=== PATIENT | male | born 1930 | race Caucasian/White ===

== ENCOUNTER 2018-10-21 10:57 | Inpatient (IN) ==
[2018-10-21] MEDS ORDERED: 0.9 % Sodium Chloride 1,000 ML IVC ONE (11:16)
[2018-10-21] MEDS ORDERED: Ondansetron ODT 4 MG TAB.RAPDIS SL ONE (11:23)
[2018-10-21] MEDS ORDERED: Isovue-370 500 ML BOTTLE IVP ONE (11:27)
--- NOTE | 2018-10-21 11:35 | Emergency Department Note ---
Disposition Clinical Impression: Elevated LFTs Abdominal pain Qualifiers: Abdominal location: periumbilical Qualified Code(s): R10.33 - Periumbilical pain Leukocytosis Qualifiers: Leukocytosis type: leukemoid reaction Qualified Code(s): D72.823 - Leukemoid reaction Disposition: Admitted As Inpatient Condition: Fair Time of Disposition: 22:25 Abdominal Pain HPI - General Chief Complaint: ED Abdominal Pain Stated Complaint: abdominal pain Time Seen by Provider: 10/21/18 11:09 Source: patient Nursing Notes Reviewed: Yes Vital Signs Reviewed: Yes - History of Present Illness HPI Narrative: 87-year-old male with history significant for GERD presents today with 3 days of abdominal pain. He states that he has felt ill for 3 days, and has had ill- defined lower abdominal pain that has not radiated has not been relieved by any of his Tylenol 4 which he takes for chronic pain. He reports vomiting periodically since last night denies any hematemesis or coffee-ground emesis. He also reports nausea and constipation. His last bowel movement was 3 days ago after taking some Metamucil. He also reports shortness of breath for the last day or so. He reports the pain at its worst was a 10 out of 10 last night and is described as a dull ache in his lower abdomen. He denies any new numbness, tingling, radiation of the pain, lower extremity swelling, black stool, bloody stool, urinary changes, including increased urgency, frequency or pain with urination. He reports the pain is worse with movement, but also gradually worsens at rest. She says the pain is better if he applies pressure to his lower abdomen or if he repositions himself. He denies any flank pain, groin pa in, chest pain. His past medical history is significant for high cholesterol high blood pressure takes simvastatin losartan Tylenol for an omeprazole. He denies any history of peptic ulcer disease, states he takes omeprazole for GERD he received an upper endoscopy for his GERD a very long time ago. Denies any alcohol or drug use, former smoker quit in the early . Pain Scale: 8 - Related Data Home Medications Medication Instructions Recorded Confirmed Losartan [Cozaar] 25 mg PO DAILY 10/21/18 10/21/18 Omeprazole [PriLOSEC] 20 mg PO DAILY 10/21/18 10/21/18 Simvastatin [Zocor] 10 mg PO DAILY 10/21/18 10/21/18 Allergies Allergy/AdvReac Type Severity Reaction Status Date / Time aspirin AdvReac Cough Verified 10/21/18 11:16 All systems ED: reviewed and negative except as stated. Review of Systems: As Per HPI Abdominal Pain PMH - Past Medical History Medical history: Reports: GERD, hyperlipidemia, hypertension Male Surgical History: Reports: orthopedic, other Psychiatric history: Reports: no psych history - Social History Smoking status: Never smoker Alcohol use: Reports: none Drug use: Reports: none Physical Exam - General Limitations: no limitations General appearance: alert, in no apparent distress - Head Head exam: atraumatic, normocephalic, normal inspection - Eye Eye exam: Present: normal appearance, PERRL, EOMI. Absent: scleral icterus, conjunctival injection, nystagmus - ENT ENT exam: normal oropharynx, mucous membranes moist - Neck Neck exam: Present: normal inspection, trachea midline - Chest Chest inspection: Present: normal inspection, symmetric chest wall rise - Respiratory Respiratory exam: Absent: normal lung sounds bilaterally (Course breath sounds referred from upper airway), respiratory distress, wheezes, stridor, accessory muscle use - Cardiovascular Cardiovascular exam: Present: regular rate, normal rhythm, normal heart sounds. Absent: systolic murmur, diastolic murmur - Abdominal Exam Abdominal exam: Present: soft, tenderness (Mild tenderness to deep palpation in the suprapubic area only.). Absent: distention, guarding, rebound, rigidity, organomegaly, trauma, mass - Rectal Exam Rectal exam: Present: deferred - Extremities Exam Extremities exam: Present: normal inspection, normal capillary refill. Absent: tenderness, pedal edema - Back Exam Back exam: Present: normal inspection. Absent: CVA tenderness (R), CVA tenderness (L) - Neurological Exam Neurological exam: Present: alert, oriented X3, CN II-XII intact - Psychiatric Psychiatric exam: Present: normal affect, normal mood - Skin Skin exam: Present: warm, dry, normal color. 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 We will give Tylenol for relief of the body aches. Time: 13:17 - Consultations Consultation #1: Spoke with gastroenterology., Given patient's non-toxic appearance and mild clinical presentation. We are in agreement that this does not require immediate intervention, he will be admitted to medicine and made nothing by mouth after midnight and will be seen by GI tomorrow, likely for an MRCP Time: 14:00 Consultation #2: Spoke with hospitalist about admission of patient, due to concerns on there and of potential decompensation and the possibility that more urgent intervention might be needed than an admission with visit by GI tomorrow, we will obtain a lactate given a bolus of fluids and draw blood cultures. Pending the results of the lactic acid, patient will be admitted to medicine Time: 14:30 Vital Signs Temperature 98.6 F 10/21/18 11:03 Pulse Rate 99 10/21/18 11:03 Respiratory Rate 16 10/21/18 11:03 Blood Pressure 135/76 10/21/18 11:03 O2 Sat by Pulse Oximetry 99 10/21/18 11:03 Temperature 98.2 F 10/21/18 17:34 Pulse Rate 71 10/21/18 17:34 Respiratory Rate 14 10/21/18 17:34 Blood Pressure 126/67 10/21/18 17:34 O2 Sat by Pulse Oximetry 96 10/21/18 17:34 Oxygen Delivery Oxygen Delivery Room Air Abdominal Pain - MDM Narrative Medical decision making narrative: 87-year-old male presented to the ED today with ill-defined abdominal pain constipation, shortness of breath. His initial physical exam revealed a nonacute abdomen, with some mild tenderness in the lower quadrants. Laboratory investigation revealed a bilirubin of 1.7 with an AST of 394 and an ALT of 235, with an alkaline phosphatase of 313. CAT scan revealed cholelithiasis with dilation of the common bile duct. 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 I agree with this assessment, as the patient is in stable condition and has had a nonacute clinical appearance for the duration of his stay here. In discussion with the hospitalist, they requested we obtain a lactate level to rule out occult septic process. Pending this lab value, he will be admitted to medicine for further workup of his cholelithiasis with common bile duct dilation - Differential Diagnosis Differential Diagnosis: Likely: abdominal pain non-specific - Medical Records Medical records reviewed: Yes I reviewed the patient's medical records. - Lab Data Lab results reviewed: Yes I reviewed the patient's lab results. Result diagrams: 10/21/18 11:53 Lab Results 10/21/18 10/21/18 10/21/18 Range/Units 11:39 11:53 11:53 WBC 15.3 H (4.3-11.1) K/mcL RBC 4.59 (4.19-5.50) M/mcL Hgb 14.0 (12.9-16.9) g/dL Hct 43.1 (37.5-50.1) % MCV 93.9 (83.0-100.0) fL MCH 30.5 (28.0-33.3) pg MCHC 32.5 (31.6-35.5) g/dL RDW 12.4 (11.5-14.5) % Plt Count 198 (140-400) K/mcL MPV 10.5 (9.4-12.4) fL Immature Gran % 0.5 (0-4) % Seg Neutrophils % 89.6 % Lymphocytes % 2.7 % Monocytes % 6.9 % Eosinophils % 0.1 % Basophils % 0.2 % Neutrophils # 13.7 H (1.6-8.9) K/mcL Lymphocytes # 0.4 L (0.6-4.6) K/mcL Monocytes # 1.1 (0.0-1.3) K/mcL Eosinophils # 0.0 (0.0-0.6) K/mcL Basophils # 0.0 (0.0-0.2) K/mcL PT (9.4-12.1) Seconds INR Lactic Acid (0.5-2.2) mmol/L Total Bilirubin 1.7 H (0.3-1.0) mg/dL Direct Bilirubin 0.7 H (0.0-0.2) mg/dL Indirect Bilirubin 1.0 (0.0-1.2) mg/dL AST 394 H (13-39) Units/L ALT 235 H (7-52) Units/L Alkaline Phosphatase 313 H (34-104) Units/L Ammonia (16-53) mcmol/L Troponin I < 0.03 (< 0.04) ng/mL Serum Total Protein 7.0 (6.4-8.9) g/dL Albumin 4.2 (3.5-5.7) g/dL Globulin 2.8 (2.4-3.5) g/dL Albumin/Globulin Ratio 1.5 (1.1-2.2) Lipase 13 (11-82) Units/L Urine Color Dark Yellow (Yellow) Urine Clarity Clear (Clear) Urine pH 6.0 (5.0-8.0) pH Units Ur Specific [place] 1.025 (1.010-1.025) Urine Protein Trace (Neg-Trace) mg/dL Urine Glucose (UA) Normal (Normal) mg/dL Urine Ketones Trace H (Negative) mg/dL Urine Blood Negative (Negative) Urine Nitrite Negative (Negative) Urine Bilirubin Small H (Negative) Urine Urobilinogen 2.0 H (Normal) mg/dL Ur Leukocyte Esterase Small H (Negative) Urine Microscopic RBC 0-3 (0-3) per hpf Urine Microscopic WBC 5-15 H (0-3) per hpf Ur Squamous Epith Cells Moderate H (None-Few) per lpf Urine Bacteria None Seen (None-Few) per hpf Hyaline Casts None Seen (None-Few) per lpf Ur Culture Indicated? YES A (NO) Hepatitis A IgM Ab (Nonreactive) Hep Bs Antigen (Nonreactive) Hep B Core IgM Ab (Nonreactive) Hepatitis C Ab Screen (Nonreactive) 10/21/18 10/21/18 10/21/18 Range/Units 11:53 11:53 13:01 WBC (4.3-11.1) K/mcL RBC (4.19-5.50) M/mcL Hgb (12.9-16.9) g/dL Hct (37.5-50.1) % MCV (83.0-100.0) fL MCH (28.0-33.3) pg MCHC (31.6-35.5) g/dL RDW (11.5-14.5) % Plt Count (140-400) K/mcL MPV (9.4-12.4) fL Immature Gran % (0-4) % Seg Neutrophils % % Lymphocytes % % Monocytes % % Eosinophils % % Basophils % % Neutrophils # (1.6-8.9) K/mcL Lymphocytes # (0.6-4.6) K/mcL Monocytes # (0.0-1.3) K/mcL Eosinophils # (0.0-0.6) K/mcL Basophils # (0.0-0.2) K/mcL PT 11.9 (9.4-12.1) Seconds INR 1.0 Lactic Acid (0.5-2.2) mmol/L Total Bilirubin (0.3-1.0) mg/dL Direct Bilirubin (0.0-0.2) mg/dL Indirect Bilirubin (0.0-1.2) mg/dL AST (13-39) Units/L ALT (7-52) Units/L Alkaline Phosphatase (34-104) Units/L Ammonia 24 (16-53) mcmol/L Troponin I (< 0.04) ng/mL Serum Total Protein (6.4-8.9) g/dL Albumin (3.5-5.7) g/dL Globulin (2.4-3.5) g/dL Albumin/Globulin Ratio (1.1-2.2) Lipase (11-82) Units/L Urine Color (Yellow) Urine Clarity (Clear) Urine pH (5.0-8.0) pH Units Ur Specific [place] (1.010-1.025) Urine Protein (Neg-Trace) mg/dL Urine Glucose (UA) (Normal) mg/dL Urine Ketones (Negative) mg/dL Urine Blood (Negative) Urine Nitrite (Negative) Urine Bilirubin (Negative) Urine Urobilinogen (Normal) mg/dL Ur Leukocyte Esterase (Negative) Urine Microscopic RBC (0-3) per hpf Urine Microscopic WBC (0-3) per hpf Ur Squamous Epith Cells (None-Few) per lpf Urine Bacteria (None-Few) per hpf Hyaline Casts (None-Few) per lpf Ur Culture Indicated? (NO) Hepatitis A IgM Ab Nonreactive (Nonreactive) Hep Bs Antigen Nonreactive (Nonreactive) Hep B Core IgM Ab Nonreactive (Nonreactive) Hepatitis C Ab Screen Nonreactive (Nonreactive) 10/21/18 Range/Units 14:48 WBC (4.3-11.1) K/mcL RBC (4.19-5.50) M/mcL Hgb (12.9-16.9) g/dL Hct (37.5-50.1) % MCV (83.0-100.0) fL MCH (28.0-33.3) pg MCHC (31.6-35.5) g/dL RDW (11.5-14.5) % Plt Count (140-400) K/mcL MPV (9.4-12.4) fL Immature Gran % (0-4) % Seg Neutrophils % % Lymphocytes % % Monocytes % % Eosinophils % % Basophils % % Neutrophils # (1.6-8.9) K/mcL Lymphocytes # (0.6-4.6) K/mcL Monocytes # (0.0-1.3) K/mcL Eosinophils # (0.0-0.6) K/mcL Basophils # (0.0-0.2) K/mcL PT (9.4-12.1) Seconds INR Lactic Acid 1.3 (0.5-2.2) mmol/L Total Bilirubin (0.3-1.0) mg/dL Direct Bilirubin (0.0-0.2) mg/dL Indirect Bilirubin (0.0-1.2) mg/dL AST (13-39) Units/L ALT (7-52) Units/L Alkaline Phosphatase (34-104) Units/L Ammonia (16-53) mcmol/L Troponin I (< 0.04) ng/mL Serum Total Protein (6.4-8.9) g/dL Albumin (3.5-5.7) g/dL Globulin (2.4-3.5) g/dL Albumin/Globulin Ratio (1.1-2.2) Lipase (11-82) Units/L Urine Color (Yellow) Urine Clarity (Clear) Urine pH (5.0-8.0) pH Units Ur Specific [place] (1.010-1.025) Urine Protein (Neg-Trace) mg/dL Urine Glucose (UA) (Normal) mg/dL Urine Ketones (Negative) mg/dL Urine Blood (Negative) Urine Nitrite (Negative) Urine Bilirubin (Negative) Urine Urobilinogen (Normal) mg/dL Ur Leukocyte Esterase (Negative) Urine Microscopic RBC (0-3) per hpf Urine Microscopic WBC (0-3) per hpf Ur Squamous Epith Cells (None-Few) per lpf Urine Bacteria (None-Few) per hpf Hyaline Casts (None-Few) per lpf Ur Culture Indicated? (NO) Hepatitis A IgM Ab (Nonreactive) Hep Bs Antigen (Nonreactive) Hep B Core IgM Ab (Nonreactive) Hepatitis C Ab Screen (Nonreactive) - Radiology Data Radiology results reviewed: Yes I reviewed the patient's radiology results. - EKG Data EKG attestation: Yes I reviewed and interpreted this EKG. EKG results narrative: EKG measured at 1153 shows sinus rhythm at a rate of 97 MS interval is 171 QRS of 99 with a QTC of 460 there are no acute ST segment changes or T-wave inversions, however there is isolated flattening of the T-wave in aVL. There are some changes in QRS morphology notably in leads 3 and aVF when compared to prior EKG of 713 2006 R wave progression is good, no evidence of acute cardiac pathology
[2018-10-21 12:09] LABS: Bilirubin,Urine Small (Negative); Blood,Urine Negative (Negative); Clarity,Urine Clear (Clear); Color,Urine Dark Yellow (Yellow); Glucose,Urine (UA) Normal (Normal); Ketones,Urine Trace mg/dL (Negative); Leukocyte Esterase,Urine Small (Negative); Nitrite,Urine Negative (Negative); Protein,Urine Trace mg/dL (Neg-Trace); Specific Gravity,Urine 1.025 (1.010-1.025)
[2018-10-21 12:12] LABS: Basophils % 0.2 %; Eosinophils % 0.1 %; Hematocrit 43.1 % (37.5-50.1); Immature Granulocytes % 0.5 % (0-4); Lymphocytes # 0.4 K/mcL (0.6-4.6); Lymphocytes % 2.7 %; Mean Corpuscular HGB Conc 32.5 g/dL (31.6-35.5); Mean Corpuscular Hemoglobin 30.5 pg (28.0-33.3); Mean Corpuscular Volume 93.9 fL (83.0-100.0); Mean Platelet Volume 10.5 fL (9.4-12.4); Monocytes # 1.1 K/mcL (0.0-1.3); Monocytes % 6.9 %; Neutrophils # 13.7 K/mcL (1.6-8.9); Platelet Count 198 K/mcL (140-400); Red Blood Count 4.59 M/mcL (4.19-5.50); Red Cell Distribution Width 12.4 % (11.5-14.5); Segmented Neutrophils % 89.6 %; White Blood Count 15.3 K/mcL (4.3-11.1)
[2018-10-21 12:14] LABS: Bacteria,Urine None Seen per hpf (None-Few); Hyaline Casts,Urine None Seen per lpf (None-Few); Squamous Epithelial Cell,Urine Moderate per lpf (None-Few)
--- NOTE | 2018-10-21 12:20 | Emergency Department Note ---
Disposition Clinical Impression: Elevated LFTs Abdominal pain Qualifiers: Abdominal location: unspecified location Qualified Code(s): R10.9 - Unspecified abdominal pain Leukocytosis Qualifiers: Leukocytosis type: unspecified Qualified Code(s): D72.829 - Elevated white blood cell count, unspecified Disposition: Admitted As Inpatient Condition: Fair Referrals: Enrique Sosa DO [Primary Care Provider] - Forms: ED Satisfaction Letter, Work/School Release Time of Disposition: 15:51 General Adult HPI - General Chief complaint: ED Abdominal Pain Stated complaint: abdominal pain Time Seen by Provider: 10/21/18 11:09 Source: patient Limitations: no limitations - History of Present Illness Pain Scale: 8 - Related Data Home Medications Medication Instructions Recorded Confirmed Losartan [Cozaar] 25 mg PO DAILY 10/21/18 10/21/18 Omeprazole [PriLOSEC] 20 mg PO DAILY 10/21/18 10/21/18 Simvastatin [Zocor] 10 mg PO DAILY 10/21/18 10/21/18 Allergies Allergy/AdvReac Type Severity Reaction Status Date / Time aspirin AdvReac Cough Verified 10/21/18 11:16 Past Medical History - Past Medical History Medical history: Reports: GERD, hyperlipidemia, hypertension Psychiatric history: Reports: no psych history - Social History Smoking Status: Never smoker Smokeless Tobacco Status: No Alcohol use: Reports: none Drug use: Reports: none Physical Exam - General Limitations: no limitations General appearance: alert, in no apparent distress Course Vital Signs Temperature 98.6 F 10/21/18 11:03 Pulse Rate 99 10/21/18 11:03 Respiratory Rate 16 10/21/18 11:03 Blood Pressure 135/76 10/21/18 11:03 O2 Sat by Pulse Oximetry 99 10/21/18 11:03 Temperature 99 F 10/21/18 15:15 Pulse Rate 82 10/21/18 15:15 Respiratory Rate 18 10/21/18 15:15 Blood Pressure 128/61 10/21/18 15:15 O2 Sat by Pulse Oximetry 95 10/21/18 15:15 Oxygen Delivery Oxygen Delivery Room Air Medical Decision Making - Lab Data Result diagrams: 10/21/18 11:53 Lab Results 10/21/18 10/21/18 10/21/18 Range/Units 11:39 11:53 11:53 WBC 15.3 H (4.3-11.1) K/mcL RBC 4.59 (4.19-5.50) M/mcL Hgb 14.0 (12.9-16.9) g/dL Hct 43.1 (37.5-50.1) % MCV 93.9 (83.0-100.0) fL MCH 30.5 (28.0-33.3) pg MCHC 32.5 (31.6-35.5) g/dL RDW 12.4 (11.5-14.5) % Plt Count 198 (140-400) K/mcL MPV 10.5 (9.4-12.4) fL Immature Gran % 0.5 (0-4) % Seg Neutrophils % 89.6 % Lymphocytes % 2.7 % Monocytes % 6.9 % Eosinophils % 0.1 % Basophils % 0.2 % Neutrophils # 13.7 H (1.6-8.9) K/mcL Lymphocytes # 0.4 L (0.6-4.6) K/mcL Monocytes # 1.1 (0.0-1.3) K/mcL Eosinophils # 0.0 (0.0-0.6) K/mcL Basophils # 0.0 (0.0-0.2) K/mcL PT (9.4-12.1) Seconds INR Lactic Acid (0.5-2.2) mmol/L Total Bilirubin 1.7 H (0.3-1.0) mg/dL Direct Bilirubin 0.7 H (0.0-0.2) mg/dL Indirect Bilirubin 1.0 (0.0-1.2) mg/dL AST 394 H (13-39) Units/L ALT 235 H (7-52) Units/L Alkaline Phosphatase 313 H (34-104) Units/L Ammonia (16-53) mcmol/L Troponin I < 0.03 (< 0.04) ng/mL Serum Total Protein 7.0 (6.4-8.9) g/dL Albumin 4.2 (3.5-5.7) g/dL Globulin 2.8 (2.4-3.5) g/dL Albumin/Globulin Ratio 1.5 (1.1-2.2) Lipase 13 (11-82) Units/L Urine Color Dark Yellow (Yellow) Urine Clarity Clear (Clear) Urine pH 6.0 (5.0-8.0) pH Units Ur Specific [place] 1.025 (1.010-1.025) Urine Protein Trace (Neg-Trace) mg/dL Urine Glucose (UA) Normal (Normal) mg/dL Urine Ketones Trace H (Negative) mg/dL Urine Blood Negative (Negative) Urine Nitrite Negative (Negative) Urine Bilirubin Small H (Negative) Urine Urobilinogen 2.0 H (Normal) mg/dL Ur Leukocyte Esterase Small H (Negative) Urine Microscopic RBC 0-3 (0-3) per hpf Urine Microscopic WBC 5-15 H (0-3) per hpf Ur Squamous Epith Cells Moderate H (None-Few) per lpf Urine Bacteria None Seen (None-Few) per hpf Hyaline Casts None Seen (None-Few) per lpf Ur Culture Indicated? YES A (NO) Hepatitis A IgM Ab (Nonreactive) Hep Bs Antigen (Nonreactive) Hep B Core IgM Ab (Nonreactive) Hepatitis C Ab Screen (Nonreactive) 10/21/18 10/21/18 10/21/18 Range/Units 11:53 11:53 13:01 WBC (4.3-11.1) K/mcL RBC (4.19-5.50) M/mcL Hgb (12.9-16.9) g/dL Hct (37.5-50.1) % MCV (83.0-100.0) fL MCH (28.0-33.3) pg MCHC (31.6-35.5) g/dL RDW (11.5-14.5) % Plt Count (140-400) K/mcL MPV (9.4-12.4) fL Immature Gran % (0-4) % Seg Neutrophils % % Lymphocytes % % Monocytes % % Eosinophils % % Basophils % % Neutrophils # (1.6-8.9) K/mcL Lymphocytes # (0.6-4.6) K/mcL Monocytes # (0.0-1.3) K/mcL Eosinophils # (0.0-0.6) K/mcL Basophils # (0.0-0.2) K/mcL PT 11.9 (9.4-12.1) Seconds INR 1.0 Lactic Acid (0.5-2.2) mmol/L Total Bilirubin (0.3-1.0) mg/dL Direct Bilirubin (0.0-0.2) mg/dL Indirect Bilirubin (0.0-1.2) mg/dL AST (13-39) Units/L ALT (7-52) Units/L Alkaline Phosphatase (34-104) Units/L Ammonia 24 (16-53) mcmol/L Troponin I (< 0.04) ng/mL Serum Total Protein (6.4-8.9) g/dL Albumin (3.5-5.7) g/dL Globulin (2.4-3.5) g/dL Albumin/Globulin Ratio (1.1-2.2) Lipase (11-82) Units/L Urine Color (Yellow) Urine Clarity (Clear) Urine pH (5.0-8.0) pH Units Ur Specific [place] (1.010-1.025) Urine Protein (Neg-Trace) mg/dL Urine Glucose (UA) (Normal) mg/dL Urine Ketones (Negative) mg/dL Urine Blood (Negative) Urine Nitrite (Negative) Urine Bilirubin (Negative) Urine Urobilinogen (Normal) mg/dL Ur Leukocyte Esterase (Negative) Urine Microscopic RBC (0-3) per hpf Urine Microscopic WBC (0-3) per hpf Ur Squamous Epith Cells (None-Few) per lpf Urine Bacteria (None-Few) per hpf Hyaline Casts (None-Few) per lpf Ur Culture Indicated? (NO) Hepatitis A IgM Ab Nonreactive (Nonreactive) Hep Bs Antigen Nonreactive (Nonreactive) Hep B Core IgM Ab Nonreactive (Nonreactive) Hepatitis C Ab Screen Nonreactive (Nonreactive) 10/21/18 Range/Units 14:48 WBC (4.3-11.1) K/mcL RBC (4.19-5.50) M/mcL Hgb (12.9-16.9) g/dL Hct (37.5-50.1) % MCV (83.0-100.0) fL MCH (28.0-33.3) pg MCHC (31.6-35.5) g/dL RDW (11.5-14.5) % Plt Count (140-400) K/mcL MPV (9.4-12.4) fL Immature Gran % (0-4) % Seg Neutrophils % % Lymphocytes % % Monocytes % % Eosinophils % % Basophils % % Neutrophils # (1.6-8.9) K/mcL Lymphocytes # (0.6-4.6) K/mcL Monocytes # (0.0-1.3) K/mcL Eosinophils # (0.0-0.6) K/mcL Basophils # (0.0-0.2) K/mcL PT (9.4-12.1) Seconds INR Lactic Acid 1.3 (0.5-2.2) mmol/L Total Bilirubin (0.3-1.0) mg/dL Direct Bilirubin (0.0-0.2) mg/dL Indirect Bilirubin (0.0-1.2) mg/dL AST (13-39) Units/L ALT (7-52) Units/L Alkaline Phosphatase (34-104) Units/L Ammonia (16-53) mcmol/L Troponin I (< 0.04) ng/mL Serum Total Protein (6.4-8.9) g/dL Albumin (3.5-5.7) g/dL Globulin (2.4-3.5) g/dL Albumin/Globulin Ratio (1.1-2.2) Lipase (11-82) Units/L Urine Color (Yellow) Urine Clarity (Clear) Urine pH (5.0-8.0) pH Units Ur Specific [place] (1.010-1.025) Urine Protein (Neg-Trace) mg/dL Urine Glucose (UA) (Normal) mg/dL Urine Ketones (Negative) mg/dL Urine Blood (Negative) Urine Nitrite (Negative) Urine Bilirubin (Negative) Urine Urobilinogen (Normal) mg/dL Ur Leukocyte Esterase (Negative) Urine Microscopic RBC (0-3) per hpf Urine Microscopic WBC (0-3) per hpf Ur Squamous Epith Cells (None-Few) per lpf Urine Bacteria (None-Few) per hpf Hyaline Casts (None-Few) per lpf Ur Culture Indicated? (NO) Hepatitis A IgM Ab (Nonreactive) Hep Bs Antigen (Nonreactive) Hep B Core IgM Ab (Nonreactive) Hepatitis C Ab Screen (Nonreactive) Attestation Statement - Attestation Attestation: Nehemias Zhang D.O., examined this patient and my medical decision-making was reviewed with the Resident Physician. I agree with the documented findings, disposition and treatment plan as described except to the extent set forth below. Patient seen in conjunction with Dr. Thompson. [id number] time provided. Please see his documentation for history, exam, ED course and disposition. In brief the patient is an 87-year-old gentleman presenting with abdominal pain. States it started last night. He ate some peaches was he attributes this to. Had some pain in his lower abdomen but also felt like he hurt all over. States he was having some much pain he felt short of breath. This is since resolved and he feels much better. Family at home reports he was vomiting phlegm overnight. He denies any chest pain. Shortness of breath is resolved. His abdominal pain is actually resolved. States he had a heart attack several decades ago. Denies prior abdominal surgical history. No UTI symptoms. Exam: Patient is alert, pleasant no acute distress. Family at bedside. States he is not actually having abdominal pain currently. His heart is regular rate and rhythm. Lungs clear to auscultation bilaterally. His abdomen is soft, nontender nondistended, no peritoneal features. Shimmy's are without edema. Mentating appropriately and answering questions properly. Plan: CT imaging of the abdomen, labs, EKG, chest x-ray and troponin. Case discussed with on-call gastroenterology. Recommend nothing by mouth and they will address tomorrow by either MRCP or ERCP. Case was discussed with the hospitalist Dr. Chawla who requested a lactic acid. Lactic acid of 1.3. He has a leukocytosis of 15 of unknown etiology at this point. May be secondary to pain. Discussed with the hospitalist. Admitted to Dr. Chawla. ED procedure note: EKG interpretation: I agree with resident physician assessment, interpretation and documentation of the EKG. EKG chemistry sinus bradycardia with a rate of 56 beats or minute. Normal axis. Normal intervals. Normal R-wave progression. No gross ST elevations or depressions. No acute ischemic findings.
[2018-10-21 12:26] LABS: Alanine Aminotransferase 235 Units/L (7-52); Albumin 4.2 g/dL (3.5-5.7); Albumin/Globulin Ratio 1.5 (1.1-2.2); Alkaline Phosphatase 313 Units/L (34-104); Aspartate Amino Transferase 394 Units/L (13-39); Bilirubin,Direct 0.7 mg/dL (0.0-0.2); Bilirubin,Total 1.7 mg/dL (0.3-1.0); Globulin 2.8 g/dL (2.4-3.5); Lipase 13 Units/L (11-82)
[2018-10-21 12:27] LABS: Troponin I < 0.03 ng/mL (< 0.04)
[2018-10-21 12:31] LABS: RBC,Urine 0-3 per hpf (0-3)
[2018-10-21] MEDS ORDERED: Acetaminophen 325 MG TABLET PO STA (13:16)
[2018-10-21 13:55] LABS: Prothrombin Time 11.9 Seconds (9.4-12.1)
[2018-10-21 14:19] LABS: Hepatitis B Surface Antigen Nonreactive (Nonreactive)
[2018-10-21] MEDS ORDERED: Ringers Solution, Lactated 1,000 ML IVC ONE (14:20)
[2018-10-21 14:47] LABS: Hepatitis C Virus Antibody Nonreactive (Nonreactive)
[2018-10-21 14:48] LABS: Hepatitis B Core IgM Nonreactive (Nonreactive)
[2018-10-21 14:50] LABS: Hepatitis A Antibody IgM Nonreactive (Nonreactive)
[2018-10-21] MEDS ORDERED: *HR* HYDROcodone/Acet 5/325 mg TABLET PO PRN (16:10)
[2018-10-21] MEDS ORDERED: Ondansetron 4 MG/2 ML VIAL IVP PRN (16:10)
[2018-10-21] MEDS ORDERED: *HR* OxyCODONE Immed Rel 5 MG TABLET PO PRN (16:10)
[2018-10-21] MEDS ORDERED: Naloxone 0.4 MG/ML INJ IVP PRN (16:10)
[2018-10-21] MEDS ORDERED: Acetaminophen 325 MG TABLET PO PRN (16:10)
--- NOTE | 2018-10-21 16:24 | Internal Med History&Physical ---
Date of Encounter: 10/21/18 Time of Encounter: 16:00 Internal Medicine - H&P: HPI Chief complaint: ABdominal pain Admitted From: Home Plans for Post Hospital Care: Home History of present illness: Mr. Clayton is a 87 year old male with a past medical history significant for GERD, presented today with the chief complaint of abdominal pain for almost 3 days. Patient finds the pain in the lower midabdomen, ill-defined, sharp, no aggravating or relieving factors, associated with nausea a few episodes of vomiting, containing normal food, nonbilious in nature. Denies hematemesis. Denies diarrhea, constipation, hematochezia. Denies dysuria, hematuria, nocturia. Endorses fever, chills, denies rigors. Patient did not take the tmeperature at home. Patient denies any history of liver cirrhosis, gastric ulcer disease, history of gallstones. In the ED, the patient was hemodynamically stable. Laboratory workup revealed WBC count of 15.3, neutrophils of 13.7, elevated total bilirubin, elevated direct bilirubin, elevated AST, AST, alkaline phosphatase. lactic acid was normal. CT scan of the abdomen was done which showed suspected mild intrahepatic biliary duct dilatation. Patient was admitted for further management. Past Med Surg Social Fam HX - Past Medical History Medical history: GERD, hyperlipidemia, hypertension Additional medical history: [place] 40 years ago Psychiatric history: no psych history - Past Surgical History Additional surgical history: No documented past surgical hsitory - Social History Smoking Status: Never smoker Smokeless Tobacco Status: No Alcohol use: none Drug use: none - Additional Family History Additional family history: Parents are . No family history of gall stones. Internal Medicine - H&P: Meds Losartan [Cozaar] 25 mg PO DAILY 10/21/18 [History] Omeprazole [PriLOSEC] 20 mg PO DAILY 10/21/18 [History] Simvastatin [Zocor] 10 mg PO DAILY 10/21/18 [History] Allergy/AdvReac Type Severity Reaction Status Date / Time aspirin AdvReac Cough Verified 10/21/18 11:16 All Systems PM: A 10-system review of systems was performed and is negative for pertinent findings except as documented above in the HPI. Review of systems: General: See HPI HEENT: Negative for swelling, discharge from nose, discharge from ears. EYES: Negative for any discharge from the eyes. Respiratory: Negative for shortness of breath, orthopnea, exertional dyspnea. Cardiovascular: Negative for chest pain, shortness of breath, orthopnea, PND. Gastrintestical: Vomiting and nuaseas Genitourinary: Negative for dysuria, hematuria, nocturia, increased frequency of urine. Hematological: Negative for blood loss, negative for active cancer. Neurological: Negative for headache, dizziness, blurry vision, loss os power and sensations. Endocrinology: Negative for constipation, polyuria, polydipsia. Psychiatric: Negative for anxiety or depression. - Constitutional Vitals: Temp Pulse Resp BP Pulse Ox 99 F 82 18 128/61 95 10/21/18 15:15 10/21/18 15:15 10/21/18 15:15 10/21/18 15:15 10/21/18 15:15 Exam: General: Alert and oriented, no physical distress, able to follow commands. HEENT: No thyromegaly, no lymphadenopathy, no discharge. Eyes: No discharge. Respiratory: Normal vesicular breathing, no added sounds, breathing equal in bot h sides. CVS: Normal heart sounds, no murmurs, no edema. Extremities: No peripheral edema, peripheral pulses intact. Lymph nodes: No lymphadenopathy Gastrointestinal: Soft, nontender abdomen, normal abdominal sounds. No distention noted. Genitourinary: No paravertebral tenderness. Neurological: Alert and oriented. No focal deficits. Cranial nerves II-XII intact. Internal Med - H&P Results - Labs CBC & Chem 7: 10/21/18 11:53 Labs: Short CBC 10/21/18 Range/Units 11:53 WBC 15.3 H (4.3-11.1) K/mcL Hgb 14.0 (12.9-16.9) g/dL Hct 43.1 (37.5-50.1) % Plt Count 198 (140-400) K/mcL Neutrophils # 13.7 H (1.6-8.9) K/mcL Cardiac Enzymes 10/21/18 Range/Units 11:53 Troponin I < 0.03 (< 0.04) ng/mL Liver Function 10/21/18 Range/Units 11:53 Total Bilirubin 1.7 H (0.3-1.0) mg/dL Direct Bilirubin 0.7 H (0.0-0.2) mg/dL AST 394 H (13-39) Units/L ALT 235 H (7-52) Units/L Alkaline Phosphatase 313 H (34-104) Units/L Albumin 4.2 (3.5-5.7) g/dL Urine 10/21/18 Range/Units 11:39 Urine Color Dark Yellow (Yellow) Urine Clarity Clear (Clear) Urine pH 6.0 (5.0-8.0) pH Units Ur Specific [place] 1.025 (1.010-1.025) Urine Protein Trace (Neg-Trace) mg/dL Urine Glucose (UA) Normal (Normal) mg/dL - Impressions ITS Impressions Abdomen/Pelvis CT 10/21/18 11:40 IMPRESSION: 5 mm right lower lobe pulmonary nodule. No imaging follow-up is recommended as below. Cholelithiasis. Suspected mild intrahepatic biliary ductal dilation. Correlation for biliary obstruction is recommended. RECOMMENDATIONS: 5.0 mm solid pulmonary nodule. No routine follow-up imaging is recommended. These guidelines do not apply to patients younger than 35 years, immunocompromised patients, and patients with cancer. Follow up in patients with significant comorbidities as clinically warranted. For lung cancer screening, adhere to Lung-RADS guidelines. Reference: Radiology. 2017; 284(1):228-43. D/ / Tamika Cordova Cha, MD / Tamika Cordova Cha, MD Interpreting Provider: Tamika Cordova Cha, MD - Assessment and Plan (1) Choledocholithiasis Current Visit: Yes Status: Acute Assessment and plan: CT scan concerning for mild intrahepatic degenerative dilatation. Currently no suspicion of acute cholangitis, providing the patient does not have any abdominal pain, and there is no abnormal lactic acid levels. Patient WBC is mildly elevated. Patient is also reporting some fever. Plan: Order MRCP. GI consult. Keep the patient nothing by mouth after midnight in anticipation of procedure Order ceftriaxone 1 g daily. (2) Essential hypertension Current Visit: Yes Status: Acute Assessment and plan: On losartan at home. Continue. (3) Abdominal pain Current Visit: Yes Status: Acute Assessment and plan: Likely secondary to choledocholithiasis -ANother possiiblity could be UTI,cultures ahve been sent -Management plan outlined above. Qualifiers: Abdominal location: periumbilical Qualified Code(s): R10.33 - Periumbilical pain (4) Elevated LFTs Current Visit: Yes Status: Acute Assessment and plan: Likely secondary to choledocholithiasis. Management plan outlined above. -Repat LFTs tomorrow. (5) Leukocytosis Current Visit: Yes Status: Acute Assessment and plan: Etiology unclear -Low suspicion of acute cholangitis -Blood cultures obtianed. -Order ceftiraxone as the pt is high riosk for the cholangitis -COntinue to monitor Qualifiers: Leukocytosis type: leukemoid reaction Qualified Code(s): D72.823 - Leukemoid reaction (6) GERD (gastroesophageal reflux disease) Current Visit: No Status: Chronic Assessment and plan: Continue omeprazole Qualifiers: Esophagitis presence: esophagitis presence not specified Qualified Code(s): K21.9 - Gastro-esophageal reflux disease without esophagitis (7) DVT prophylaxis Current Visit: Yes Status: Acute Assessment and plan: Sub q heparin - Time Spent With Patient Total time spent is greater than 50% in coordination of care (as documented) at patient's floor/unit and/or counseling patient:
[2018-10-21] MEDS: cefTRIAXone 1,000 MG in Water for inj. (sterile) 10 ML IVP SCH (17:39)
[2018-10-21] MEDS: *HR* Heparin 5,000 UNIT/ML VIAL SQ SCH (17:40)
[2018-10-21] MEDS: Ringers Solution, Lactated 1,000 ML IVC SCH (17:41)
[2018-10-22] MEDS: *HR* Heparin 5,000 UNIT/ML VIAL SQ SCH ×2 (05:35→17:10)
[2018-10-22 07:00] LABS: Acinetobacter baumannii by PCR Not Detected (Not Detect); Candida albicans by PCR Not Detected (Not Detect); Candida glabrata by PCR Not Detected (Not Detect); Candida krusei by PCR Not Detected (Not Detect); Candida parapsilosis by PCR Not Detected (Not Detect); Candida tropicalis by PCR Not Detected (Not Detect); Enterobacter cloacae Cmplx PCR Not Detected (Not Detect); Enterococcus by PCR Not Detected (Not Detect); Escherichia coli by PCR DETECTED (Not Detect); Klebsiella oxytoca by PCR Not Detected (Not Detect); Klebsiella pneumoniae by PCR Not Detected (Not Detect); Proteus by PCR Not Detected (Not Detect); Pseudomonas aeruginosa by PCR Not Detected (Not Detect); Serratia marcescens by PCR Not Detected (Not Detect); Staphylococcus aureus by PCR Not Detected (Not Detect); Staphylococcus by PCR Not Detected (Not Detect); Streptococcus agalactiae(B)PCR Not Detected (Not Detect); Streptococcus by PCR Not Detected (Not Detect); Streptococcus pneumoniae PCR Not Detected (Not Detect); Streptococcus pyogenes (A) PCR Not Detected (Not Detect); blaKPC Carbapenem-Resist Gene Not Detected (Not Detect)
[2018-10-22 07:08] LABS: Basophils % 0.4 %; Eosinophils # 0.3 K/mcL (0.0-0.6); Eosinophils % 2.6 %; Hematocrit 35.9 % (37.5-50.1); Immature Granulocytes % 0.4 % (0-4); Lymphocytes # 0.8 K/mcL (0.6-4.6); Lymphocytes % 8.4 %; Mean Corpuscular Volume 96.8 fL (83.0-100.0); Mean Platelet Volume 10.6 fL (9.4-12.4); Monocytes # 0.8 K/mcL (0.0-1.3); Monocytes % 7.7 %; Neutrophils # 7.9 K/mcL (1.6-8.9); Platelet Count 169 K/mcL (140-400); Red Blood Count 3.71 M/mcL (4.19-5.50); Red Cell Distribution Width 12.9 % (11.5-14.5); Segmented Neutrophils % 80.5 %; White Blood Count 9.8 K/mcL (4.3-11.1)
[2018-10-22 07:09] LABS: Hemoglobin 11.5 g/dL (12.9-16.9)
[2018-10-22] MEDS: Ringers Solution, Lactated 1,000 ML IVC SCH (07:12)
[2018-10-22 07:31] LABS: BUN/Creatinine Ratio 17 (6-26); Blood Urea Nitrogen 19 mg/dL (8-23); Calcium 8.7 mg/dL (8.6-10.3); Carbon Dioxide 25 mEq/L (23-29); Chloride 109 mEq/L (98-107); Glucose 100 mg/dL (70-105); Osmolality,Calculated 298 (280-300); Potassium 3.7 mEq/L (3.5-5.1); Sodium 143 mEq/L (136-145); eGFR For African Americans > 60 (> 60); eGFR For Non-African Americans > 60 (> 60)
[2018-10-22] MEDS: cefTRIAXone 1,000 MG in Water for inj. (sterile) 10 ML IVP SCH (08:07)
[2018-10-22 08:08] LABS: Alanine Aminotransferase 130 Units/L (7-52); Albumin 3.3 g/dL (3.5-5.7); Albumin/Globulin Ratio 1.4 (1.1-2.2); Alkaline Phosphatase 199 Units/L (34-104); Aspartate Amino Transferase 107 Units/L (13-39); Bilirubin,Direct 0.2 mg/dL (0.0-0.2); Bilirubin,Indirect 0.5 mg/dL (0.0-1.2); Bilirubin,Total 0.7 mg/dL (0.3-1.0); Gamma Glutamyl Transpeptidase 230 Units/L (2-30); Globulin 2.3 g/dL (2.4-3.5); Total Protein 5.6 g/dL (6.4-8.9)
--- NOTE | 2018-10-22 11:01 | Gastroenterology Consult Note ---
Date of Encounter: 10/22/18 Time of Encounter: 09:45 - Assessment and plan (1) Elevated LFTs Current Visit: Yes Status: Acute Assessment and plan: On admission TB 1.7, AST 394, ALT 235, alk phos 3113. Today TB 0.7, AST 107, ALT 130, alk [id number], GGT 230. CT A/P with cholelithiasis, suspected mild intrahepatic biliary duct dilation, CBD measured 6mm. Complete MRCP to rule out obstruction. May require ERCP. Dr. Boyer to review MRCP images and make determination. (2) Bacteremia due to Escherichia coli Current Visit: Yes Status: Acute Assessment and plan: Management per primary team. - Time Spent With Patient Total time spent is greater than 50% in coordination of care (as documented) at patient's floor/unit and/or counseling patient: GI History of Present Illness - Data of Consult Patient: new to practice Consult date: 10/22/18 Requesting Physician: Roosevelt Jackson - Consult Narrative Reason for consult: Cholelithiasis with CBD dilation History of present illness: Mr. Clayton is a 87 year old male with PMHx of GERD, HLD, HTN who presented with complaint of three days of abdominal pain with no aggravating or relieving factors, associated with nausea a few episodes of vomiting. No hematemesis or c offee-ground emesis. CT A/P showed suspected mild intrahepatic biliary duct dilatation and CBD 6mm. On admission WBC 15.3,TB 1.7, AST 394, ALT 235, alk phos 313. MRCP has been ordered. Blood culture positive for E coli. No shortness of breath, vomiting, hematemesis, melena, hematochezia, diarrhea, or constipation. Procedures: None NSAIDs: None Anticoagulation: None Past Med Surg Social Fam HX - Past Medical History Medical history: GERD, hyperlipidemia, hypertension Additional medical history: [place] 40 years ago Psychiatric history: no psych history - Past Surgical History Additional surgical history: No documented past surgical hsitory - Social History Smoking Status: Never smoker Smokeless Tobacco Status: No Alcohol use: none Drug use: none - Gastrointestinal Gastrointestinal: Present: as per HPI - Constitutional Constitutional: as per HPI - EENT Eyes: as per HPI Ears: Present: as per HPI Nose, mouth and throat: Present: as per HPI - Cardiovascular Cardiovascular ROS: Present: as per HPI - Respiratory Respiratory IM: Present: as per HPI - Genitourinary Genitourinary: Absent: change in color, Urinary frequency - Neurological ROS Neurological GI: Present: as per HPI - Hematologic/Lymphatic Hematologic/Lymphatic pediatric: Present: as per HPI - Musculoskeletal Musculoskeletal ROS GI: Present: as per HPI - Integumentary Integumentary GI: Present: as per HPI - Psychiatric ROS Psychiatric GI: Present: as per HPI - Endocrine Endocrine IM: Present: as per HPI - Constitutional Vitals: Temp Pulse Resp BP Pulse Ox 98.4 F 70 15 132/70 98 10/22/18 06:38 10/22/18 06:38 10/22/18 06:38 10/22/18 06:38 10/22/18 06:38 General appearance: Present: cooperative, A&O X 3, no acute distress, answers questions appropriately - Head Head exam: Present: atraumatic, normocephalic - Eye Eye exam: Present: normal appearance, sclera anicteric - ENT ENT exam: Present: mucous membranes moist - Neck Neck exam general surgery: Present: normal inspection, trachea midline - Respiratory Respiratory exam: Present: CTAB. Absent: rales, rhonchi, wheezes - Cardiovascular Cardiovascular exam: Present: RRR, +S1, +S2 - GI/Abdominal GI/Abdominal exam: Present: soft, no peritoneal signs. Absent: distended, firm, guarding, tenderness - Rectal Rectal exam: Present: deferred - Extremities Exam Extremities exam: Present: warm - Neurological Exam Neurological exam: Present: no focal deficits - Psychiatric Psychiatric exam: Present: normal affect, normal mood - Skin Skin exam: Present: dry, intact, normal color, warm Results - Labs CBC & Chem 7: 10/22/18 06:50 10/22/18 06:50 Labs: Last Result 10/22/18 06:50 Calcium 8.7 Entire Visit 10/21/18 10/22/18 10/22/18 14:48 06:50 06:50 Hgb 11.5 L D Hct 35.9 L Total Bilirubin 0.7 AST 107 H ALT 130 H E. coli (PCR) DETECTED A - ABG ABG results: PT/INR, D-dimer PT 11.9 Seconds (9.4-12.1) 10/21/18 11:53 - Impressions Impressions Abdomen/Pelvis CT 10/21/18 11:40 IMPRESSION: 5 mm right lower lobe pulmonary nodule. No imaging follow-up is recommended as below. Cholelithiasis. Suspected mild intrahepatic biliary ductal dilation. Correlation for biliary obstruction is recommended. RECOMMENDATIONS: 5.0 mm solid pulmonary nodule. No routine follow-up imaging is recommended. These guidelines do not apply to patients younger than 35 years, immunocompromised patients, and patients with cancer. Follow up in patients with significant comorbidities as clinically warranted. For lung cancer screening, adhere to Lung-RADS guidelines. Reference: Radiology. 2017; 284(1):228-43. D/ / Tamika Cordova Cha, MD / Tamika Cordova Cha, MD Interpreting Provider: Tamika Cordova Cha, MD Consult Discharge Plan - Plan Referrals: Enrique Sosa DO [Primary Care Provider] -
[2018-10-22] MEDS ORDERED: *HR* OxyCODONE Immed Rel 5 MG TABLET PO PRN (16:57)
--- NOTE | 2018-10-22 17:10 | Internal Med Progress Note ---
Hospitalist Progress Note - Encounter Date of Encounter: 10/22/18 Time of Encounter: 09:00 - Subjective Interval History: No major events overnight. Patient was seen this a.m. He denied fever, chills or night sweats. He has no nausea, vomiting or abdominal pain. Patient denied chest pain, shortness of breath or palpitation. - Exam Vitals: Temp Pulse Resp BP Pulse Ox 98.4 F 66 16 151/66 99 10/22/18 14:24 10/22/18 14:24 10/22/18 14:24 10/22/18 14:24 10/22/18 14:24 Exam: General: Patient is alert, oriented 3. Head: Atraumatic, normal inspection, normocephalic. Eye: EOMI, PERRLA, no scleral icterus noted. ENT: Mucous membranes moist. No odontogenic infection noted. Neck: Normal inspection, no meningismus. Respiratory: No respiratory distress, rhonchi, or wheezes noted. Cardiovascular: Regular rate and regular rhythm, S1 and S2 audible. No murmurs, rubs, or gallops. GI: Soft, nondistended, normal bowel sounds. Extremities:No joint swelling, pedal edema, or tenderness noted. Neurological: Alert, oriented 3, no focal deficits. Psychiatric: normal affect, normal mood. Skin: Dry, intact, warm. Normal color. No rashes. - Assessment and Plan (1) Bacteremia due to Escherichia coli Current Visit: Yes Status: Acute (2) Abdominal pain Current Visit: Yes Status: Resolved (3) Elevated LFTs Current Visit: Yes Status: Acute (4) Leukocytosis Current Visit: Yes Status: Resolved (5) Choledocholithiasis Current Visit: Yes Status: Acute (6) Essential hypertension Current Visit: Yes Status: Acute (7) GERD (gastroesophageal reflux disease) Current Visit: No Status: Chronic (8) DVT prophylaxis Current Visit: Yes Status: Acute - Summary of Assessment and Plan Summary of Assessment and Plan: Mr. Clayton is a 87 year old male with a past medical history significant for GERD, presented today with the chief complaint of abdominal pain, nausea and vomiting. His symptoms are much as following.: Choledocholithiasis: - Patient had elevated LFTs, GGT with normal lipase. - CT of the abdomen revealed Suspected mild intrahepatic biliary ductal dilation - MRCP Tiny gallstones without other findings to suggest acute cholecystitis, Mild left intrahepatic biliary ductal dilatation - GI is consulted, appreciate recommendation. - We will discuss tomorrow with GI if they recommend general surgery consult for future cholecystectomy. Abdominal pain: Resolved - 2/2 above, likely passed a stone already. Ecoli bacteremia: - Likely from biliary tree source. - 1/2 blood cultures are positive for Escherichia coli. Repeat blood cultures today. Urine cultures are -. - Patient is afebrile, leukocytosis improved. Continue Rocephin day 2. Transaminitis: Improving - 2/2 above. Check LFT tomorrow. Leukocytosis: - 2/2 above, check CBC tomorrow Pulmonary nodule: - 5.0 mm solid pulmonary nodule. No routine follow-up imaging is recommended. HTN: - continue home medication. DVT prophylaxis: sc heparin I reviewed independently all laboratory workup, pertinent images including x- rays and CT scans. I also reviewed independently and EKGs and my findings are in the body of my assessment and plan. I ordered the laboratory workup and images myself. I discussed finding with patient's, their families, RN's and consultants involved in the care of the patient. - Time Spent with Patient Total time spent is greater than 50% in coordination of care (as documented) at patient's floor/unit and/or counseling patient: Plan of Care Discussed with: patient Internal Medicine: Result - Labs CBC & Chem 7: 10/22/18 06:50 10/22/18 06:50 Labs: Short CBC 10/22/18 Range/Units 06:50 WBC 9.8 (4.3-11.1) K/mcL Hgb 11.5 L D (12.9-16.9) g/dL Hct 35.9 L (37.5-50.1) % Plt Count 169 (140-400) K/mcL Neutrophils # 7.9 (1.6-8.9) K/mcL BMP 10/22/18 06:50 Sodium 143 Potassium 3.7 Chloride 109 H Carbon Dioxide 25 BUN 19 Creatinine 1.13 Glucose 100 Calcium 8.7 Liver Function 10/22/18 Range/Units 06:50 Total Bilirubin 0.7 (0.3-1.0) mg/dL Direct Bilirubin 0.2 (0.0-0.2) mg/dL GGT 230 H (2-30) Units/L AST 107 H (13-39) Units/L ALT 130 H (7-52) Units/L Alkaline Phosphatase 199 H (34-104) Units/L Albumin 3.3 L (3.5-5.7) g/dL - ABG Interpretation ABG results: PT/INR, D-dimer PT 11.9 Seconds (9.4-12.1) 10/21/18 11:53 - Impressions Impressions Abdomen MRI 10/21/18 16:19 IMPRESSION: 1. Tiny gallstones without other findings to suggest acute cholecystitis. 2. Mild left intrahepatic biliary ductal dilatation. No significant extrahepatic biliary ductal dilatation or definite evidence for choledocholithiasis. D/ / Zach Landeros MD / Zach Landeros MD Interpreting Provider: Zach Landeros MD Consult Discharge Plan - Plan Referrals: Enrique Sosa DO [Primary Care Provider] - (2) Abdominal pain Qualifiers: Abdominal location: generalized Qualified Code(s): R10.84 - Generalized abdominal pain (4) Leukocytosis Qualifiers: Leukocytosis type: leukemoid reaction Qualified Code(s): D72.823 - Leukemoid reaction (7) GERD (gastroesophageal reflux disease) Qualifiers: Esophagitis presence: esophagitis presence not specified Qualified Code(s): K21.9 - Gastro-esophageal reflux disease without esophagitis
[2018-10-23] MEDS: *HR* Heparin 5,000 UNIT/ML VIAL SQ SCH (05:46)
[2018-10-23 06:42] LABS: Hematocrit 35.2 % (37.5-50.1); Hemoglobin 11.1 g/dL (12.9-16.9); Mean Corpuscular HGB Conc 31.5 g/dL (31.6-35.5); Mean Corpuscular Hemoglobin 30.9 pg (28.0-33.3); Mean Corpuscular Volume 98.1 fL (83.0-100.0); Mean Platelet Volume 10.9 fL (9.4-12.4); Platelet Count 170 K/mcL (140-400); Red Blood Count 3.59 M/mcL (4.19-5.50); Red Cell Distribution Width 12.8 % (11.5-14.5); White Blood Count 6.3 K/mcL (4.3-11.1)
[2018-10-23 07:04] LABS: Alanine Aminotransferase 76 Units/L (7-52); Albumin 3.2 g/dL (3.5-5.7); Albumin/Globulin Ratio 1.3 (1.1-2.2); Alkaline Phosphatase 164 Units/L (34-104); Aspartate Amino Transferase 34 Units/L (13-39); BUN/Creatinine Ratio 15 (6-26); Bilirubin,Direct 0.1 mg/dL (0.0-0.2); Bilirubin,Indirect 0.2 mg/dL (0.0-1.2); Bilirubin,Total 0.3 mg/dL (0.3-1.0); Blood Urea Nitrogen 19 mg/dL (8-23); Calcium 8.4 mg/dL (8.6-10.3); Carbon Dioxide 24 mEq/L (23-29); Chloride 109 mEq/L (98-107); Globulin 2.4 g/dL (2.4-3.5); Glucose 155 mg/dL (70-105); Osmolality,Calculated 299 (280-300); Potassium 3.8 mEq/L (3.5-5.1); Sodium 142 mEq/L (136-145); Total Protein 5.6 g/dL (6.4-8.9); eGFR For African Americans > 60 (> 60); eGFR For Non-African Americans 56 (> 60)
[2018-10-23] MEDS: cefTRIAXone 1,000 MG in Water for inj. (sterile) 10 ML IVP SCH (08:12)
--- NOTE | 2018-10-23 12:53 | AcuteCare Surgery Consult Note ---
Date of Encounter: 10/23/18 Time of Encounter: 12:00 Assessment and Plan (1) Symptomatic cholelithiasis Current Visit: Yes Status: Acute Pt diagnosis of symptomatic cholelithiasis is discussed. Laparoscopic Cholecystectomy is recommended. Procedure for the surgery, risks and benefits are discussed in detail. Possible known complications for Laparoscopic Cholecystectomy are bleeding, infection, bile duct injury, bile leak, small intestine or stomach injury, stroke, DVT/PE, AK or . Pt understands these risks, which in this case are low-moderate. Pt wishes to proceed with surgery as soon as possible. Informed consent is obtained. Pt condition is stable. Surgery is scheduled. (2) Essential hypertension Current Visit: Yes Status: Acute History of Present Illness Consult date: 10/23/18 Reason for consult: abdominal pain Requesting physician: Roosevelt Jackson History of present illness: This 87 y/o pt presents to [facility] c/o severe RUQ abdominal pain. Pt reports pain was severe and unrelenting. Pt c/o epigastric pain as well. Pt reports pain radiates into back. Pt reports nausea and vomiting. Pt was admitted and worked up for choledocholithasis. No ERCP at this time. Surgery consulted for teetee. Pt denies changes in BM. Pt denies CP or SOB. Pt denies fever. Past Med Surg Social Fam HX - Past Medical History Medical history: GERD, hyperlipidemia, hypertension Additional medical history: AK 40 years ago Psychiatric history: no psych history - Past Surgical History Additional surgical history: No documented past surgical hsitory - Social History Smoking Status: Never smoker Smokeless Tobacco Status: No Alcohol use: none Drug use: none Medications and Allergies Losartan [Cozaar] 25 mg PO DAILY 10/21/18 [History] Omeprazole [PriLOSEC] 20 mg PO DAILY 10/21/18 [History] Acetaminophen with Codeine [Acetaminophen-Cod #4 Tablet] 1 tab PO BID PRN 10/22/18 [History] Simvastatin [Zocor] 40 mg PO DAILY 10/22/18 [History] Allergy/AdvReac Type Severity Reaction Status Date / Time aspirin AdvReac Cough Verified 10/21/18 11:16 Review of Systems All systems PM: The remainder of the systems were reviewed and are negative - Constitutional anorexia, fatigue, malaise, no chills, no weakness - EENT Nose, mouth and throat: no dry mouth, no nasal congestion, no nasal discharge, no sinus pain, no sinus pressure, no sore throat - Cardiovascular no chest pain, no diaphoresis, no dyspnea, no edema - Respiratory no cough, no dyspnea, no wheezing - Gastrointestinal abdominal pain, belching, bloating, cramping, heartburn, nausea, no constipation, no diarrhea, no vomiting - Genitourinary no dysuria, no flank pain, no urinary frequency - Musculoskeletal back pain, no joint swelling, no limited range of motion, no neck pain - Integumentary no dry skin, no pruritus, no rash, no wounds, no jaundice - Neurological weakness, no confusion, no dizziness, no focal weakness - Psychiatric anxiety, no depression - Hematologic/Lymphatic no easy bleeding, no easy bruising General Surgery Exam Initial Vital Signs Temp Pulse Resp BP Pulse Ox 98.6 F 99 16 135/76 99 10/21/18 11:03 10/21/18 11:03 10/21/18 11:03 10/21/18 11:03 10/21/18 11:03 - General physical appearance well developed, no distress, no pain. negative: jaundice - Eyes PERRL, normal ocular movement. negative: icteric - ENT normal mucosa, no congestion. negative: nasal discharge - Neck no masses, trachea midline, no lymphadectomy, no venous distension - Respiratory normal respiratory effort, clear to auscultation - Cardiovascular Cardiovascular exam: Present: RRR. Absent: JVD - Abdomen Abdomen general surgery: Present: bowel sounds present, soft, tender. Absent: distended, guarding, rebound Abdominal Tenderness: Present: RUQ - Genitourinary Present: normal penis with no external lesions - Integumentary Integumentary general surgery: Present: warm and dry - Neurologic Present: CN 2-12 grossly intact, normal coordination - Musculoskeletal Present: normal gait, normal posture - Psychiatric Psychiatric general surgery: Present: A&Ox3, appropriate Exam Initial Vital Signs Temp Pulse Resp BP Pulse Ox 98.6 F 99 16 135/76 99 10/21/18 11:03 10/21/18 11:03 10/21/18 11:03 10/21/18 11:03 10/21/18 11:03 Results - Labs 10/23/18 06:15 10/23/18 06:15 Abnormal lab results WBC 15.3 K/mcL (4.3-11.1) H 10/21/18 11:53 RBC 3.59 M/mcL (4.19-5.50) L 10/23/18 06:15 Hgb 11.1 g/dL (12.9-16.9) L 10/23/18 06:15 Hct 35.2 % (37.5-50.1) L 10/23/18 06:15 MCHC 31.5 g/dL (31.6-35.5) L 10/23/18 06:15 Neutrophils # 13.7 K/mcL (1.6-8.9) H 10/21/18 11:53 Lymphocytes # 0.4 K/mcL (0.6-4.6) L 10/21/18 11:53 Chloride 109 mEq/L (98-107) H 10/23/18 06:15 Est GFR (Non-Af Amer) 56 (> 60) L 10/23/18 06:15 Glucose 155 mg/dL (70-105) H 10/23/18 06:15 Calcium 8.4 mg/dL (8.6-10.3) L 10/23/18 06:15 Total Bilirubin 1.7 mg/dL (0.3-1.0) H 10/21/18 11:53 Direct Bilirubin 0.7 mg/dL (0.0-0.2) H 10/21/18 11:53 GGT 230 Units/L (2-30) H 10/22/18 06:50 AST 107 Units/L (13-39) H 10/22/18 06:50 ALT 76 Units/L (7-52) H 10/23/18 06:15 Alkaline Phosphatase 164 Units/L (34-104) H 10/23/18 06:15 Serum Total Protein 5.6 g/dL (6.4-8.9) L 10/23/18 06:15 Albumin 3.2 g/dL (3.5-5.7) L 10/23/18 06:15 Globulin 2.3 g/dL (2.4-3.5) L 10/22/18 06:50 Urine Ketones Trace mg/dL (Negative) H 10/21/18 11:39 Urine Bilirubin Small (Negative) H 10/21/18 11:39 Urine Urobilinogen 2.0 mg/dL (Normal) H 10/21/18 11:39 Ur Leukocyte Esterase Small (Negative) H 10/21/18 11:39 Urine Microscopic WBC 5-15 per hpf (0-3) H 10/21/18 11:39 Ur Squamous Epith Cells Moderate per lpf (None-Few) H 10/21/18 11:39 Ur Culture Indicated? YES (NO) A 10/21/18 11:39 E. coli (PCR) DETECTED (Not Detect) A 10/21/18 14:48 Diabetes panel 10/23/18 Range/Units 06:15 Sodium 142 (136-145) mEq/L Potassium 3.8 (3.5-5.1) mEq/L Chloride 109 H (98-107) mEq/L Carbon Dioxide 24 (23-29) mEq/L BUN 19 (8-23) mg/dL Creatinine 1.23 (0.70-1.30) mg/dL Glucose 155 H (70-105) mg/dL Calcium 8.4 L (8.6-10.3) mg/dL AST 34 (13-39) Units/L ALT 76 H (7-52) Units/L Alkaline Phosphatase 164 H (34-104) Units/L Albumin 3.2 L (3.5-5.7) g/dL Calcium panel 10/23/18 Range/Units 06:15 Calcium 8.4 L (8.6-10.3) mg/dL Albumin 3.2 L (3.5-5.7) g/dL Pituitary panel 10/23/18 Range/Units 06:15 Sodium 142 (136-145) mEq/L Potassium 3.8 (3.5-5.1) mEq/L Chloride 109 H (98-107) mEq/L Carbon Dioxide 24 (23-29) mEq/L BUN 19 (8-23) mg/dL Creatinine 1.23 (0.70-1.30) mg/dL Glucose 155 H (70-105) mg/dL Calcium 8.4 L (8.6-10.3) mg/dL Adrenal panel 10/23/18 Range/Units 06:15 Sodium 142 (136-145) mEq/L Potassium 3.8 (3.5-5.1) mEq/L Chloride 109 H (98-107) mEq/L Carbon Dioxide 24 (23-29) mEq/L BUN 19 (8-23) mg/dL Creatinine 1.23 (0.70-1.30) mg/dL Glucose 155 H (70-105) mg/dL Calcium 8.4 L (8.6-10.3) mg/dL Total Bilirubin 0.3 (0.3-1.0) mg/dL AST 34 (13-39) Units/L ALT 76 H (7-52) Units/L Alkaline Phosphatase 164 H (34-104) Units/L Albumin 3.2 L (3.5-5.7) g/dL All other labs normal. - Imaging CT scan - abdomen: image reviewed (Cholelithiasis. Suspected mild intrahepatic biliary ductal dilation.) CT scan - pelvis: image reviewed Additional studies: MRCP reveals gallstones and no choledocholithiasis Consult Discharge Plan - Plan Referrals: Enrique Sosa DO [Primary Care Provider] -
--- NOTE | 2018-10-23 15:43 | Internal Med Progress Note ---
Hospitalist Progress Note - Encounter Date of Encounter: 10/23/18 Time of Encounter: 09:00 - Subjective Interval History: No major events overnight. Patient was seen this a.m. He denied fever, chills or night sweats. He has no nausea, vomiting or abdominal pain. Patient denied chest pain, shortness of breath or palpitation. - Exam Vitals: Temp Pulse Resp BP Pulse Ox 97.8 F 62 15 204/76 99 10/23/18 14:14 10/23/18 14:14 10/23/18 14:14 10/23/18 14:14 10/23/18 14:14 Exam: General: Patient is alert, oriented 3. Head: Atraumatic, normal inspection, normocephalic. Eye: EOMI, PERRLA, no scleral icterus noted. ENT: Mucous membranes moist. No odontogenic infection noted. Neck: Normal inspection, no meningismus. Respiratory: No respiratory distress, rhonchi, or wheezes noted. Cardiovascular: Regular rate and regular rhythm, S1 and S2 audible. No murmurs, rubs, or gallops. GI: Soft, nondistended, normal bowel sounds. Extremities:No joint swelling, pedal edema, or tenderness noted. Neurological: Alert, oriented 3, no focal deficits. Psychiatric: normal affect, normal mood. Skin: Dry, intact, warm. Normal color. No rashes. - Assessment and Plan (1) Bacteremia due to Escherichia coli Current Visit: Yes Status: Acute (2) Abdominal pain Current Visit: Yes Status: Resolved (3) Elevated LFTs Current Visit: Yes Status: Acute (4) Leukocytosis Current Visit: Yes Status: Resolved (5) Choledocholithiasis Current Visit: Yes Status: Acute (6) Essential hypertension Current Visit: Yes Status: Acute (7) GERD (gastroesophageal reflux disease) Current Visit: No Status: Chronic (8) DVT prophylaxis Current Visit: Yes Status: Acute - Summary of Assessment and Plan Summary of Assessment and Plan: Mr. Clayton is a 87 year old male with a past medical history significant for GERD, presented today with the chief complaint of abdominal pain, nausea and vomiting. His symptoms are much as following.: Choledocholithiasis: - Patient had elevated LFTs, GGT with normal lipase. - CT of the abdomen revealed Suspected mild intrahepatic biliary ductal dilation - MRCP Tiny gallstones without other findings to suggest acute cholecystitis, Mild left intrahepatic biliary ductal dilatation - Discussed with GI. Patient may need cholecystectomy. GS is consulted, may proceed with cholecystectomy today. Ecoli bacteremia: - Likely from biliary tree source. - 1/2 blood cultures are positive for Escherichia coli. Repeat blood cultures are still negative. Urine cultures are -. - Patient is afebrile, has no leukocytosis.. Continue Rocephin day 3. Abdominal pain: Resolved - 2/2 above, likely passed a stone already. Transaminitis: Improving - 2/2 above. Check LFT tomorrow. Leukocytosis: - resolved Pulmonary nodule: - 5.0 mm solid pulmonary nodule. No routine follow-up imaging is recommended. HTN: - continue home medication. DVT prophylaxis: sc heparin - Time Spent with Patient Total time spent is greater than 50% in coordination of care (as documented) at patient's floor/unit and/or counseling patient: Plan of Care Discussed with: patient Internal Medicine: Result - Labs CBC & Chem 7: 10/23/18 06:15 10/23/18 06:15 Labs: Short CBC 10/23/18 Range/Units 06:15 WBC 6.3 (4.3-11.1) K/mcL Hgb 11.1 L (12.9-16.9) g/dL Hct 35.2 L (37.5-50.1) % Plt Count 170 (140-400) K/mcL BMP 10/23/18 06:15 Sodium 142 Potassium 3.8 Chloride 109 H Carbon Dioxide 24 BUN 19 Creatinine 1.23 Glucose 155 H Calcium 8.4 L Liver Function 10/23/18 Range/Units 06:15 Total Bilirubin 0.3 (0.3-1.0) mg/dL Direct Bilirubin 0.1 (0.0-0.2) mg/dL AST 34 (13-39) Units/L ALT 76 H (7-52) Units/L Alkaline Phosphatase 164 H (34-104) Units/L Albumin 3.2 L (3.5-5.7) g/dL - ABG Interpretation ABG results: PT/INR, D-dimer PT 11.9 Seconds (9.4-12.1) 10/21/18 11:53 Consult Discharge Plan - Plan Referrals: Enrique Sosa DO [Primary Care Provider] - (2) Abdominal pain Qualifiers: Abdominal location: generalized Qualified Code(s): R10.84 - Generalized abdominal pain (4) Leukocytosis Qualifiers: Leukocytosis type: leukemoid reaction Qualified Code(s): D72.823 - Leukemoid reaction (7) GERD (gastroesophageal reflux disease) Qualifiers: Esophagitis presence: esophagitis presence not specified Qualified Code(s): K 21.9 - Gastro-esophageal reflux disease without esophagitis
[2018-10-23] MEDS ORDERED: Isovue-300 50 ML VIAL ONE (17:54)
[2018-10-23] MEDS ORDERED: Dexamethasone 4 MG/ML VIAL ONE (18:11)
[2018-10-23] MEDS ORDERED: Ondansetron 4 MG/2 ML VIAL ONE (18:11)
[2018-10-23] MEDS ORDERED: *HR* Rocuronium Bromide 50 MG/5 ML VIAL ONE (18:11)
[2018-10-23] MEDS ORDERED: Lidocaine -MPF 2% 2 ML VIAL ONE (18:11)
[2018-10-23] MEDS ORDERED: *HR* FentaNYL (PF) 100 MCG/2 ML VIAL ONE (18:12)
[2018-10-23] MEDS ORDERED: *HR* Propofol 200 MG/20 ML VIAL IVP ONE (18:12)
[2018-10-23] MEDS ORDERED: Lidocaine -MPF 4% 5 ML AMPUL ONE (18:17)
--- NOTE | 2018-10-23 18:17 | Anesthesia Evaluation PreOp ---
Date of Encounter: 10/23/18 Time of Encounter: 18:15 - Past History Planned Operation: Lap Appendectomy Cardiac History: HTN, Hyperlipidemia Pulmonary History: Denies Any Significant HX IT ADMINISTRATIVE ASSISTANT History: Denies Any Significant HX Other Medical History: GERD Anesthesia History: No Prior Anesthetic Complications Alcohol Use: none Drug use: none Medications and Allergies Losartan [Cozaar] 25 mg PO DAILY 10/21/18 [History] Omeprazole [PriLOSEC] 20 mg PO DAILY 10/21/18 [History] Acetaminophen with Codeine [Acetaminophen-Cod #4 Tablet] 1 tab PO BID PRN 10/22/18 [History] Simvastatin [Zocor] 40 mg PO DAILY 10/22/18 [History] Allergy/AdvReac Type Severity Reaction Status Date / Time aspirin AdvReac Cough Verified 10/21/18 11:16 - Meds/Allergy Pre-op Review Medications Reviewed: Yes Allergies Reviewed: Yes Beta Blockers on Current Med List: No Anesthesia Results - Labs 10/23/18 06:15 10/23/18 06:15 - Imaging EKG: report reviewed (SR) Anesthesia Exam O2 Sat O2 Sat by Pulse Oximetry 99 O2 Sat by Pulse Oximetry 98 O2 Sat by Pulse Oximetry 98 O2 Sat by Pulse Oximetry 98 O2 Sat by Pulse Oximetry 98 O2 Sat by Pulse Oximetry 96 Vital Signs Temp Pulse Resp BP Pulse Ox 98.6 F 99 16 135/76 99 10/21/18 11:03 10/21/18 11:03 10/21/18 11:03 10/21/18 11:03 10/21/18 11:03 Height: 5'8 Weight: 148 lbs NPO (# of Hours): MN Pain Scale: 0 - HEENT Pupil (Motor): Pupils equal, EOMI Oral Opening: Greater than 3 - IT ADMINISTRATIVE ASSISTANT LOC: Oriented IT ADMINISTRATIVE ASSISTANT Motor: Normal RUE, Normal LUE, Normal RLE, Normal LLE, Normal Face IT ADMINISTRATIVE ASSISTANT Sensory: Normal: RUE, LUE, RLE, LLE, Face - Cardiac Rhythm: Regular Murmur: None JVD: No Carotid Bruit: No - Pulmonary Breath Sounds: bilateral Clear Respiratory Effort: Symmetrical Anesthesia Assess/Plan ASA Score: 2 Level of consciousness: Cooperative, Oriented Anesthetic Plan: General Autologous Blood: No Monitoring Plan: Standard Monitors Recovery Plan: PACU (Discussed GA, agrees to proceed)
[2018-10-23] MEDS ORDERED: Morphine Sulfate 2 MG/ML SYRINGE IVP PRN (18:18)
[2018-10-23] MEDS ORDERED: Famotidine 20 MG/2 ML VIAL ONE (18:22)
[2018-10-23] MEDS ORDERED: Acetaminophen IV 1,000 MG/100 ML INFUS..BTL ONE (18:22)
[2018-10-23] MEDS ORDERED: *HR* Succinylcholine 200 MG/10 ML VIAL IVP ONE (18:40)
[2018-10-23] MEDS ORDERED: Neostigmine Methylsulfate 3 MG/3 ML SYRINGE ONE (19:04)
[2018-10-23] MEDS ORDERED: *HR* Labetalol 20 MG/4 ML SYRINGE IVP ONE (19:18)
--- NOTE | 2018-10-23 19:48 | Operative Note ---
Date of procedure: 10/23/18 Pre-op diagnosis: symptomatic cholelithiasis and dilated CBD Post-op diagnosis: same Procedure: Laparoscopic cholecystectomy with intraoperative cholangiogram Complications: none Anesthesia: GETA Surgeon: Paz Rodriguez Was there an surgical physician assistant present: Yes Singeing Torch Operator: Marie Lundberg Estimated blood loss (cc): 10 Specimen: gallbladder Condition: stable Disposition: PACU Procedure in Detail: This 87 year-old male was taken to the operating room and placed in the supine position. The anterior abdominal wall is prepped and draped in the usual sterile fashion. A 1-2 cm curvilinear incision is made in the infraumbilical area and subcutaneous tissue was dissected down to anterior rectus fascia. Fascia is grasped with a Kip clamp, stay sutures were placed in the fascia is divided. Posterior rectus fascia and peritoneum were elevated and divided in the same manner. A Cindy port is inserted. Exploration of the intraabdominal cavity reveals an abnormal gallbladder but, normal appearing liver. Under direct visualization after the injection of 0.5% Marcaine the three right subcostal 5 mm ports were inserted. The patient is placed in reverse Trendelenburg position and rotated to the left. The gallbladder is grasped and retracted in cephalad direction. It is also grasped and retracted in the lateral direction. The cystic duct was carefully identified circumferentially dissected and clipped near the neck of the gallbladder. A cholecystodochotomy is made. A cholangiocatheter is placed in the cystic duct. A cholangiogram is obtained. There is easy filling of the CBD, common hepatic duct and hepatic radicals. Easy filling of the duodenum is appreciated. However, the radiologist appreciates possible stones in distal CBD vs. distal CBD stricture. ERCP is recommended. When the cholangiogram is completed, the catheter is removed. The cystic duct is doubly clipped and divided between clips. The cystic artery is also doubly clipped and divided between clips. The gallbladder is dissected off the liver bed using electrocautery. Hemostasis was perfected using electrocautery. The gallbladder is removed from the intra-abdominal cavity using an Endo Catch bag. Copious irrigation is carried out in the intra-abdominal cavity, Dodson's pouch and the gallbladder fossa. The pneumoperitoneum was allowed to escape under direct visualization. The ports were removed also under direct visualization. The fascia at the infraumbilical incision is closed using 0 Vicryl sutures. All skin incisions are closed using 4-0 Monocryl subcuticular stitches. Steri-Strips are placed. Sterile dressing is placed. Patient tolerated procedure well was taken to the PACU in good condition.
[2018-10-23] MEDS ORDERED: Glycopyrrolate 0.2 MG/ML VIAL IVP ONE (20:17)
[2018-10-23] MEDS ORDERED: Acetaminophen 325 MG TABLET PO PRN (20:49)
[2018-10-23] MEDS ORDERED: Naloxone 0.4 MG/ML INJ IVP PRN (20:49)
[2018-10-23] MEDS ORDERED: Ondansetron 4 MG/2 ML VIAL IVP PRN (20:49)
--- NOTE | 2018-10-23 20:57 | Anesthesia Evaluation Post Op ---
Date of Encounter: 10/23/18 Time of Encounter: 20:30 - Vital Signs Vital Signs: Vital Signs/O2 Sat/Glucose, Most Current Temp Pulse Resp BP Pulse Ox 10/23/18 20:33 97.5 F L 66 12 169/84 96 10/23/18 20:23 58 12 175/83 97 10/23/18 20:13 97.0 F L 44 12 169/72 95 10/23/18 20:03 46 14 172/72 95 10/23/18 19:53 58 16 159/88 97 10/23/18 19:43 97.0 F L 59 16 182/87 100 - Lungs Lungs: Clear Ascult./Percussion - Airway Airway: Non-obstructed - Cardiovascular Regular Rate - Mental Status Mental Status: Alert & Oriented, Answers Appropriately - Pain Pain Scale: 0 - Nausea Vomiting Nausea Vomiting: Not Present - Hydration Hydration: Ice chips - Discharge PostOp Status: Transfer Patient to floor
--- NOTE | 2018-10-23 23:22 | Electrocardiograph Report ---
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
[2018-10-24] MEDS: *HR* OxyCODONE Immed Rel 5 MG TABLET PO PRN ×4 (01:39→21:03)
[2018-10-24] MEDS ORDERED: Amiodarone Premix 360 MG/200 ML BAG IVC ONE (05:00)
[2018-10-24 05:12] LABS: Basophils % 0.1 %; Eosinophils % 0.1 %; Hematocrit 36.3 % (37.5-50.1); Hemoglobin 11.2 g/dL (12.9-16.9); Immature Granulocytes % 0.9 % (0-4); Lymphocytes # 0.7 K/mcL (0.6-4.6); Lymphocytes % 7.1 %; Mean Corpuscular HGB Conc 30.9 g/dL (31.6-35.5); Mean Corpuscular Hemoglobin 30.5 pg (28.0-33.3); Mean Corpuscular Volume 98.9 fL (83.0-100.0); Monocytes # 0.3 K/mcL (0.0-1.3); Monocytes % 2.8 %; Neutrophils # 9.2 K/mcL (1.6-8.9); Platelet Count 195 K/mcL (140-400); Red Blood Count 3.67 M/mcL (4.19-5.50); Red Cell Distribution Width 12.9 % (11.5-14.5); White Blood Count 10.3 K/mcL (4.3-11.1)
[2018-10-24] MEDS: 0.9 % Sodium Chloride 1,000 ML IVC SCH ×2 (05:15→16:25)
[2018-10-24] MEDS: *HR* Heparin 5,000 UNIT/ML VIAL SQ SCH ×2 (05:16→17:48)
--- NOTE | 2018-10-24 05:24 | Event Note ---
Date of Encounter: 10/24/18 Time of Encounter: 03:45 Avery edwin was called overhead and I reported to patient's room. On arrival, CPR was in progress for about 1 min. I asked for monitor to be hooked up, and ordered for 1mg epinephrine to be prepared. When monitor was attached, the patient appeared to be in v. fib, so at that time we delivered first shock at 200j and resumed CPR. In all, the patient received 3 shocks, 3 doses epinephrine, and 1 bolus 300mg amiodarone before achieving ROSC with sinus rhythm and palpable pulse. BUSINESS ASSOCIATE at bedside did attempt intubation with 2mg versed, however due to IV dysfunction, uncertain if patient received full dose and he was combative. He received 5mg versed in another IV and he was bagged eas guillermina, however he began breathing spontaneous, was placed on oxymask and maintained respiratory status independently. Stat labs ordered. EKG ordered after, compared and similar to prior without evidence of ischemic changes. Echo and cardiology consult in AM. Amiodarone drip. Patient is saturating at 99% on 5L O2 without assistance. Will monitor in ICU. Family was present and informed of clinical status following code. Spoke on phone with Dr. Sheriff to inform of avery pineda. No new orders from her at this time.
[2018-10-24 05:41] LABS: Alanine Aminotransferase 174 Units/L (7-52); Albumin 3.2 g/dL (3.5-5.7); Albumin/Globulin Ratio 1.5 (1.1-2.2); Alkaline Phosphatase 131 Units/L (34-104); Aspartate Amino Transferase 227 Units/L (13-39); BUN/Creatinine Ratio 15 (6-26); Bilirubin,Total 0.6 mg/dL (0.3-1.0); Blood Urea Nitrogen 19 mg/dL (8-23); Calcium 8.2 mg/dL (8.6-10.3); Carbon Dioxide 15 mEq/L (23-29); Chloride 110 mEq/L (98-107); Globulin 2.2 g/dL (2.4-3.5); Glucose 283 mg/dL (70-105); Magnesium 2.4 mg/dL (1.6-2.6); Osmolality,Calculated 305 (280-300); Potassium 4.1 mEq/L (3.5-5.1); Sodium 141 mEq/L (136-145); Total Protein 5.4 g/dL (6.4-8.9); Troponin I 0.04 ng/mL (< 0.04); eGFR For African Americans > 60 (> 60); eGFR For Non-African Americans 54 (> 60)
[2018-10-24] MEDS ORDERED: Dextrose Gel 15 GM/37.5 ML TUBE PO PRN ×2 (05:49)
[2018-10-24] MEDS ORDERED: *HR* Dextrose 50 % in Water (Syg) 50 ML SYRINGE IVP PRN (05:49)
[2018-10-24] MEDS ORDERED: D5% in Water 1,000 ML IVC PRN (05:49)
[2018-10-24 06:02] LABS: ABG Base Excess -8 mEq/L (-2 to 3); ABG HCO3 18 mEq/L (21-27); ABG Oxygen Saturation 91 % (95-98); ABG PCO2 34 mmHg (35-45); ABG PH 7.32 pH Units (7.32-7.45); ABG PO2 64 mmHg (85-104); ABG TCO2 19 mEq/L (20-26)
[2018-10-24] MEDS: Insulin LISPRO 300 UNITS/3 ML VIAL SQ SCH ×4 (06:07→23:38)
[2018-10-24] MEDS ORDERED: *HR* FentaNYL (PF) 100 MCG/2 ML VIAL IVP ONE (06:45)
--- NOTE | 2018-10-24 06:59 | AcuteCareSurgery Progress Note ---
Date of Encounter: 10/24/18 Time of Encounter: 05:30 - Assessment and Plan (1) Symptomatic cholelithiasis Current Visit: Yes Status: Acute S/P lap teetee with IOC. IOC was + for probable small distal CBD stones without obstruction. ERCP can be obtained outpt when pt is fully recovered. (2) Essential hypertension Current Visit: Yes Status: Acute (3) Cardiopulmonary arrest with successful resuscitation Current Visit: Yes Status: Acute Cardiology consult pending. Pt is stable. Continue current ICU care. Subjective Narrative: Pt is POD#1 lap teetee with IOC. Pt did well initially after surgery. However, last night after returning to his hospital be after being up the the BR, he went into cardiac arrest. A code was run and he returned to a perfusing cardiac rhythm. He was moved to ICU on and amiodarone drip. He is resting and hard to arouse currently. His is at his bedside. He is breathing spontaneously and is in no distress. Objective Vital Signs - Last 8 Hours Temp Pulse Resp BP Pulse Ox Pulse Ox Pulse Ox 10/24/18 06:00 71 20 112/62 94 10/24/18 04:44 98.1 F 84 22 93/59 90 10/24/18 03:58 92 98 10/24/18 03:28 98.2 F 40 18 141/64 98 10/23/18 23:30 97.6 F 46 14 165/70 10/23/18 23:21 97.3 F L 43 18 130/59 97 Intake and Output 10/23/18 10/23/18 10/24/18 15:59 23:59 07:59 Intake Total 480 / 480 Output Total 0 / 10 40 / 40 Balance 480 / 470 -10 / 470 -40 / -40 Intake: Oral 480 / 480 Output: Urine 0 / 0 Estimated Blood Loss Catheter 40 / 40 Other: Meal NPO Percent of Meal Consumed 100% Weight 66.7 kg Patient Weight 10/24/18 23:59 Weight 66.7 kg - General physical appearance no distress, no pain - Eyes PERRL - ENT normal mucosa, no congestion - Neck Neck exam: trachea midline, no venous distension - Respiratory normal respiratory effort, clear to auscultation - Cardiovascular Cardiovascular exam: Present: RRR Addtional Comments: see events of code from last pm - Abdomen Abdomen: Present: bowel sounds present, soft. Absent: distended - Incision Incision: Present: clean and dry, intact - Neurologic other (somnolent) - Musculoskeletal normal posture - Labs 10/24/18 04:59 10/24/18 04:59 Diabetes panel 10/23/18 10/24/18 Range/Units 06:15 04:59 Sodium 142 141 (136-145) mEq/L Potassium 3.8 4.1 (3.5-5.1) mEq/L Chloride 109 H 110 H (98-107) mEq/L Carbon Dioxide 24 15 L (23-29) mEq/L BUN 19 19 (8-23) mg/dL Creatinine 1.23 1.27 (0.70-1.30) mg/dL Glucose 155 H 283 H (70-105) mg/dL Calcium 8.4 L 8.2 L (8.6-10.3) mg/dL AST 34 227 H (13-39) Units/L ALT 76 H 174 H (7-52) Units/L Alkaline Phosphatase 164 H 131 H (34-104) Units/L Albumin 3.2 L 3.2 L (3.5-5.7) g/dL Calcium panel 10/23/18 10/24/18 Range/Units 06:15 04:59 Calcium 8.4 L 8.2 L (8.6-10.3) mg/dL Albumin 3.2 L 3.2 L (3.5-5.7) g/dL Pituitary panel 10/23/18 10/24/18 Range/Units 06:15 04:59 Sodium 142 141 (136-145) mEq/L Potassium 3.8 4.1 (3.5-5.1) mEq/L Chloride 109 H 110 H (98-107) mEq/L Carbon Dioxide 24 15 L (23-29) mEq/L BUN 19 19 (8-23) mg/dL Creatinine 1.23 1.27 (0.70-1.30) mg/dL Glucose 155 H 283 H (70-105) mg/dL Calcium 8.4 L 8.2 L (8.6-10.3) mg/dL Adrenal panel 10/23/18 10/24/18 Range/Units 06:15 04:59 Sodium 142 141 (136-145) mEq/L Potassium 3.8 4.1 (3.5-5.1) mEq/L Chloride 109 H 110 H (98-107) mEq/L Carbon Dioxide 24 15 L (23-29) mEq/L BUN 19 19 (8-23) mg/dL Creatinine 1.23 1.27 (0.70-1.30) mg/dL Glucose 155 H 283 H (70-105) mg/dL Calcium 8.4 L 8.2 L (8.6-10.3) mg/dL Total Bilirubin 0.3 0.6 (0.3-1.0) mg/dL AST 34 227 H (13-39) Units/L ALT 76 H 174 H (7-52) Units/L Alkaline Phosphatase 164 H 131 H (34-104) Units/L Albumin 3.2 L 3.2 L (3.5-5.7) g/dL Consult Discharge Plan - Plan Referrals: Enrique Sosa DO [Primary Care Provider] -
[2018-10-24 07:21] LABS: Estimated Average Glucose 148 mg/dl
[2018-10-24] MEDS ORDERED: *HR* Midazolam HCl 5 MG/5 ML VIAL IVP ONE (08:01)
[2018-10-24] MEDS ORDERED: *HR* Midazolam HCl 2 MG/2 ML VIAL IV ONE (08:01)
[2018-10-24] MEDS ORDERED: *HR* Magnesium Sulfate 2 GM/50 ML PIGGYBACK IVPB ONE (08:06)
[2018-10-24] MEDS ORDERED: *HR* Amiodarone 150 MG/3 ML VIAL IVPB ONE (08:06)
[2018-10-24] MEDS ORDERED: *HR* EPINEPHrine 1 MG/10 ML SYRINGE IVP ONE (08:06)
[2018-10-24] MEDS ORDERED: Perflutren Lipid Microsphere 1.3 ML in 0.9 % Sodium Chloride 8.7 ML IVP ONE (08:54)
[2018-10-24] MEDS ORDERED: cefTRIAXone 2,000 MG in Water for inj. (sterile) 20 ML IVP SCH (09:00)
[2018-10-24] MEDS ORDERED: Perflutren Lipid Microsphere 2 ML VIAL ONE (09:01)
--- NOTE | 2018-10-24 09:19 | Electrocardiograph Report ---
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
--- NOTE | 2018-10-24 09:21 | Cardiology Consult Note ---
<Bayron Wetzel - Last Filed: 10/24/18 15:34> Date of Encounter: 10/24/18 Time of Encounter: 09:19 Assessment and Plan (1) History of cardiac arrest Current Visit: Yes Status: Acute - Per event note on 10/24, VAZQUEZ FLOYD was called due to cardiac arrest - Patient was found to be in V. fib, received a total of 3 shocks, 3 doses of epinephrine, and one bolus of amiodarone before achieving ROSC - EKG demonstrated no acute changes compared to previous - He was transferred to ICU for further observation - Echocardiogram is ordered and currently pending - This morning, patient developed bradycardia with a bigeminy pattern on telemetry lasting a few minutes; during re-assessment, patient denied any new symptoms Plan: - Continue amiodarone drip - Continuous telemetry - In the setting of V. Fib and new EKG changes, plan is for [facility] tomorrow; will keep patient NPO at midnight (2) Choledocholithiasis Current Visit: Yes Status: Acute - Initially presented with abdominal pain - Labs demonstrated elevated LFTs, GGT - CT scan of abdomen revealed suspected mild intrahepatic biliary duct dilation - MRCP showed tiny gallstones without other findings to suggest acute cholecysti tis, mild left intrahepatic biliary duct dilation - Management per primary/acute care surgery (3) Bacteremia Current Visit: Yes Status: Acute - 1 out of 2 blood cultures were positive for Escherichia coli - Repeat blood cultures are negative - Continue Rocephin (4) Hypertension Current Visit: Yes Status: Acute - Continue home medication Qualifiers: Qualified Code(s): I10 - Essential (primary) hypertension (5) DVT prophylaxis Current Visit: Yes Status: Acute - SQ heparin Discussion w patient/family: The assessment and plan as outlined above was discussed with the patient and/or family members who expressed understanding and agreement. All questions were answered. Thank you for involving us in the care of your patient. Please call with any questions. History of Present Illness Consult date: 10/24/18 Consult reason: Cardiac arrest History of present illness: Mr. Clayton is a 87 year old male with a PMH of GERD who presented to [facility] with abdominal pain for 3 days. His pain was in the mid abdomen, sharp, with no aggravating or relieving factors. Initial labs demonstrated an elevated white count at 15.3, neutrophils of 13.7, elevated total bilirubin, direct bilirubin, AST, ALTs, and alkaline phosphatase. CT scan of the abdomen demonstrated mild intrahepatic biliary duct dilation. MRCP demonstrated tiny gallstones without other findings suggestive of acute cholecystitis, mild intrahepatic biliary duct dilatation. 1 out of 2 patients blood cultures were positive for Escherichia coli. Repeat blood cultures were negative. Patient was started on Rocephin. The hospitalist service and acute care surgery have both been following the patients care. Per event note on 10/24, a CODE BLUE was called due to cardiac arrest. Patient was found to be in V. fib, and was shocked at 200 J initially. In total, patient received 3 shocks, 3 doses of epinephrine, and one bolus of amiodarone 300 mg before achieving ROSC. EKG obtained immediately after demonstrated no acute changes compared to previous. Patient was transferred to ICU for further observation. An echocardiogram has been ordered and is currently pending. Cardiology service is consulted for V. fib arrest. During interview, patient states that he is feeling tired. He denies active chest pain. No further complaints st this time. Plan is for C tomorrow due to episode of VFib. He will be kept NPO after midnight. Past Med Surg Social Fam HX - Past Medical History Medical history: GERD, hyperlipidemia, hypertension Additional medical history: CA 40 years ago Psychiatric history: no psych history - Past Surgical History Additional surgical history: No documented past surgical hsitory - Social History Smoking Status: Never smoker Smokeless Tobacco Status: No Alcohol use: none Drug use: none Medications and Allergies Losartan [Cozaar] 25 mg PO DAILY 10/21/18 [History] Omeprazole [PriLOSEC] 20 mg PO DAILY 10/21/18 [History] Acetaminophen with Codeine [Acetaminophen-Cod #4 Tablet] 1 tab PO BID PRN 10/22/18 [History] Simvastatin [Zocor] 40 mg PO DAILY 10/22/18 [History] Allergy/AdvReac Type Severity Reaction Status Date / Time aspirin AdvReac Cough Verified 10/21/18 11:16 All Systems Review: The remainder of the systems were reviewed and are negative Physical Examination Vital Signs, Last 4 Hours Temp Pulse Resp BP Pulse Ox 10/24/18 08:16 65 19 144/79 97 10/24/18 07:23 97.4 F L 10/24/18 06:00 71 20 112/62 94 General: Conversant, No Apparent Distress HEENT: Atraumatic, Normocephaly, Mucus Membranes Moist, Other (dark circles present around eyes) Neck: No JVD, Normal carotid pulses Cardiac: Reg Rate and Rhythm, Normal S1 and S2, No Murmur Lungs: Normal Breath Sounds, No Wheeze, Rales, Rhonchi Neuro: Alert and responsive, No focal deficits noted Abdomen: Soft, Non-Tender Skin: No rashes noted on visualized skin (pale appearing), Other Musculoskeletal: No Chest Wall Tenderness Extremities: No Clubbing, No Cyanosis, No Edema, Normal Pulses Results 10/24/18 04:59 10/24/18 04:59 Lab Results 10/24/18 10/24/18 04:59 04:59 WBC 10.3 D Hgb 11.2 L Hct 36.3 L Plt Count 195 Sodium 141 Potassium 4.1 Chloride 110 H Carbon Dioxide 15 L BUN 19 Creatinine 1.27 Glucose 283 H Calcium 8.2 L Magnesium 2.4 Total Bilirubin 0.6 AST 227 H ALT 174 H Alkaline Phosphatase 131 H Troponin I 0.04 H* Consult Discharge Plan - Plan Referrals: Enrique Sosa DO [Primary Care Provider] - <Rober Renee A - Last Filed: 10/25/18 11:26> Date of Encounter: 10/25/18 - Attending Attestation I have personally performed a face to face evaluation on this patient. I have reviewed and agree with the documented findings and care plan as documented by the resident. History and Exam by me shows: 87-year-old pleasant gentleman admitted for choledocholithiasis status post lap teetee, noted to have V. fib cardiac arrest on the floor, status post successful resuscitation. No electrolytes abnormalities noted. Patient complains of chest soreness post-CPR and is considering DNR status AAOX3 in NAD at the bedside Hemodynamically stable Cardiopulmonary exam revealed S1, S2, no murmur; clear lungs Echo reveals global LV dysfunction EF 30-35%. Impression/plan: Cardiac arrest. Recommend cardiac catheterization. LV dysfunction also would benefit from cardiac catheterization to rule out ischemic cause. Thereafter guideline directed medical therapy. Rober Caceres MD [facility] Assessment and Plan Discussion w patient/family: The assessment and plan as outlined above was discussed with the patient and/or family members who expressed understanding and agreement. All questions were answered. Thank you for involving us in the care of your patient. Please call with any questions. History of Present Illness History of present illness: Mr. Clayton is a 87 year old male All Systems Review: The remainder of the systems were reviewed and are negative Physical Examination Vital Signs, Last 4 Hours Pulse Resp BP Pulse Ox 10/25/18 08:00 52 16 132/60 93 Results 10/25/18 04:30 10/25/18 04:30 Lab Results 10/24/18 10/24/18 10/25/18 15:55 21:48 04:30 WBC Hgb Hct Plt Count Sodium 138 Potassium 3.7 Chloride 110 H Carbon Dioxide 21 L BUN 23 Creatinine 1.31 H Glucose 122 H Calcium 8.4 L Magnesium Total Bilirubin 0.3 AST 65 H ALT 114 H Alkaline Phosphatase 123 H Troponin I 0.47 H* 0.43 H* 10/25/18 10/25/18 10/25/18 04:30 04:30 04:30 WBC 11.0 Hgb 10.9 L Hct 35.2 L Plt Count 190 Sodium Potassium Chloride Carbon Dioxide BUN Creatinine Glucose Calcium Magnesium 2.0 Total Bilirubin AST ALT Alkaline Phosphatase Troponin I 0.38 H*
[2018-10-24] MEDS: cefTRIAXone 2,000 MG in Water for inj. (sterile) 20 ML IVP SCH (09:34)
[2018-10-24] MEDS: Amiodarone Premix 360 MG/200 ML BAG IVC SCH ×2 (11:18→20:02)
[2018-10-24] MEDS: *HR* HYDROcodone/Acet 5/325 mg TABLET PO PRN ×2 (13:42→23:40)
--- NOTE | 2018-10-24 14:18 | Internal Med Progress Note ---
Hospitalist Progress Note - Encounter Date of Encounter: 10/24/18 Time of Encounter: 12:45 - Subjective Interval History: Hospital course reviewed. Patient is status post laparoscopic cholecystectomy for symptomatic cholelithiasis on 10/23. Post-operatively, he had gone into cardiac arrest with initial rhythm noted to be Vfib (printed strips from [employer]). Received 3 shocks, epinephrine x 3, and 300mg of IV Amiodarone loading before achieving ROCS. He was started continuous gtt of amiodarone and transferred to ICU. AFter ROSC, he was fully intact neurologically hence hypothermic protocol was not instituted. When asked about last night's event, pt does not recall anything other than coming back from the bathroom that night before losing consciousness. Denies any chest pain, palpitation, or N/V. - Exam Vitals: Temp Pulse Resp BP Pulse Ox 97.7 F 57 18 130/70 95 10/24/18 12:00 10/24/18 12:00 10/24/18 12:00 10/24/18 12:00 10/24/18 12:00 Exam: General: Patient is alert, oriented 3. Respiratory: clear to auscultation Cardiovascular: Regular rate and regular rhythm, S1 and S2 audible. No murmurs, rubs, or gallops. Tenderness on anterior chest wall GI: Soft, nondistended, normal bowel sounds. Extremities:No joint swelling, pedal edema, or tenderness noted. Neurological: Alert, oriented 3, no focal deficits. Psychiatric: normal affect, normal mood. - Assessment and Plan (1) Cardiopulmonary arrest with successful resuscitation Current Visit: Yes Status: Acute Assessment and Plan: Had V. fib arrest this morning (verified on the strips printed from [employer]) requiring 3 shocks, Epi x 3, and 300mg of IV Amiodarone Neurologically intact and maintaining airway after ROSC trop 0.04 - 0.3, EKG did not show any ST elevations continue amiodarone gtt, trend troponin, telemetry echocardiogram lactic acid elevation also likely due to cardiac arrest, improving with IVF cardiology consulted (2) Choledocholithiasis Current Visit: Yes Status: Acute Assessment and Plan: s/p lap teetee, POD #1 for ERCP outpatient after pt is fully recovered (3) Bacteremia due to Escherichia coli Current Visit: Yes Status: Acute Assessment and Plan: ?hepatobiliary source, urinalysis is unremarkable on IV Rocephin repeat blood cultures 10/22 NGTD (4) Essential hypertension Current Visit: Yes Status: Chronic Assessment and Plan: hold off on meds (5) GERD (gastroesophageal reflux disease) Current Visit: No Status: Chronic Assessment and Plan: PPI (6) DVT prophylaxis Current Visit: Yes Status: Acute Assessment and Plan: SQ heparin - Time Spent with Patient Total time spent is greater than 50% in coordination of care (as documented) at patient's floor/unit and/or counseling patient: Greater than 35 minutes Plan of Care Discussed with: patient (discussed with cardiology) Internal Medicine: Result - Labs CBC & Chem 7: 10/24/18 04:59 10/24/18 04:59 Labs: Short CBC 10/24/18 Range/Units 04:59 WBC 10.3 D (4.3-11.1) K/mcL Hgb 11.2 L (12.9-16.9) g/dL Hct 36.3 L (37.5-50.1) % Plt Count 195 (140-400) K/mcL Neutrophils # 9.2 H (1.6-8.9) K/mcL BMP 10/24/18 04:59 Sodium 141 Potassium 4.1 Chloride 110 H Carbon Dioxide 15 L BUN 19 Creatinine 1.27 Glucose 283 H Calcium 8.2 L Cardiac Enzymes 10/24/18 10/24/18 Range/Units 04:59 10:13 Troponin I 0.04 H* 0.30 H* (< 0.04) ng/mL Liver Function 10/24/18 Range/Units 04:59 Total Bilirubin 0.6 (0.3-1.0) mg/dL AST 227 H (13-39) Units/L ALT 174 H (7-52) Units/L Alkaline Phosphatase 131 H (34-104) Units/L Albumin 3.2 L (3.5-5.7) g/dL - ABG Interpretation ABG results: ABG ABG pH 7.32 pH Units (7.32-7.45) 10/24/18 05:58 ABG pCO2 34 mmHg (35-45) L 10/24/18 05:58 ABG pO2 64 mmHg (85-104) L 10/24/18 05:58 ABG O2 Saturation 91 % (95-98) L 10/24/18 05:58 PT/INR, D-dimer PT 11.9 Seconds (9.4-12.1) 10/21/18 11:53 - Impressions Impressions Cholangiogram,Operative 10/23/18 00:00 IMPRESSION: Choledocholithiasis with a distal common bile duct stone causing near complete obstruction. Mild dilatation of intrahepatic and extrahepatic bile ducts. Findings were discussed with the operating room staff at the time of the examination. D/ / Lee Ellis MD / Lee Ellis MD Interpreting Provider: Lee Ellis MD Chest X-Ray 10/24/18 05:09 IMPRESSION: 1. Left upper lobe pneumonia versus artifact caused by overlapping structures. 2. Possible pulmonary edema. D/ / Khanh Rios MD / Khanh Rios MD Interpreting Provider: Khanh Rios MD Consult Discharge Plan - Plan Referrals: Enrique Sosa DO [Primary Care Provider] - (5) GERD (gastroesophageal reflux disease) Qualifiers: Esophagitis presence: esophagitis presence not specified Qualified Code(s): K21.9 - Gastro-esophageal reflux disease without esophagitis
--- NOTE | 2018-10-24 19:51 | Anesthesia Evaluation Post Op ---
Date of Encounter: 10/24/18 Time of Encounter: 20:00 - Vital Signs Vital Signs: Vital Signs/O2 Sat/Glucose, Most Current Pulse Resp BP Pulse Ox 10/24/18 19:19 53 16 126/68 95 10/24/18 19:00 69 - Lungs Lungs: Clear Ascult./Percussion - Airway Airway: Non-obstructed - Cardiovascular Regular Rate - Mental Status Mental Status: Alert & Oriented, Answers Appropriately - Pain Pain Scale: 0 - Nausea Vomiting Nausea Vomiting: Not Present - Hydration Hydration: Ice chips - Discharge PostOp Status: Transfer Patient to floor
[2018-10-25] MEDS: 0.9 % Sodium Chloride 1,000 ML IVC SCH ×2 (01:04→01:10)
[2018-10-25 04:47] LABS: Basophils % 0.1 %; Eosinophils % 0.1 %; Hematocrit 35.2 % (37.5-50.1); Hemoglobin 10.9 g/dL (12.9-16.9); Immature Granulocytes % 0.5 % (0-4); Lymphocytes # 1.2 K/mcL (0.6-4.6); Lymphocytes % 11.3 %; Mean Corpuscular Hemoglobin 30.2 pg (28.0-33.3); Mean Corpuscular Volume 97.5 fL (83.0-100.0); Mean Platelet Volume 11.1 fL (9.4-12.4); Monocytes # 0.6 K/mcL (0.0-1.3); Monocytes % 5.8 %; Platelet Count 190 K/mcL (140-400); Red Blood Count 3.61 M/mcL (4.19-5.50); Red Cell Distribution Width 13.2 % (11.5-14.5); Segmented Neutrophils % 82.2 %
[2018-10-25 05:07] LABS: Alanine Aminotransferase 114 Units/L (7-52); Albumin 3.1 g/dL (3.5-5.7); Albumin/Globulin Ratio 1.3 (1.1-2.2); Alkaline Phosphatase 123 Units/L (34-104); Aspartate Amino Transferase 65 Units/L (13-39); BUN/Creatinine Ratio 18 (6-26); Bilirubin,Total 0.3 mg/dL (0.3-1.0); Blood Urea Nitrogen 23 mg/dL (8-23); Calcium 8.4 mg/dL (8.6-10.3); Carbon Dioxide 21 mEq/L (23-29); Chloride 110 mEq/L (98-107); Globulin 2.4 g/dL (2.4-3.5); Glucose 122 mg/dL (70-105); Osmolality,Calculated 291 (280-300); Potassium 3.7 mEq/L (3.5-5.1); Sodium 138 mEq/L (136-145); Total Protein 5.5 g/dL (6.4-8.9); eGFR For African Americans > 60 (> 60); eGFR For Non-African Americans 52 (> 60)
[2018-10-25] MEDS: Insulin LISPRO 300 UNITS/3 ML VIAL SQ SCH ×4 (05:08→21:03)
[2018-10-25] MEDS: *HR* Heparin 5,000 UNIT/ML VIAL SQ SCH ×2 (05:15→17:49)
[2018-10-25] MEDS: *HR* OxyCODONE Immed Rel 5 MG TABLET PO PRN ×3 (07:26→21:02)
[2018-10-25] MEDS: cefTRIAXone 2,000 MG in Water for inj. (sterile) 20 ML IVP SCH (07:30)
[2018-10-25] MEDS: Amiodarone Premix 360 MG/200 ML BAG IVC SCH (07:45)
--- NOTE | 2018-10-25 10:33 | Internal Med Progress Note ---
Hospitalist Progress Note - Encounter Date of Encounter: 10/25/18 Time of Encounter: 07:45 - Subjective Interval History: No acute events overnight. Other than soreness on his anterior chest wall on palpation, denies any shortness of breath, cough, palpitation, or leg swelling. No fever overnight - Exam Vitals: Temp Pulse Resp BP Pulse Ox 97.7 F 52 16 132/60 93 10/25/18 07:10 10/25/18 08:00 10/25/18 08:00 10/25/18 08:00 10/25/18 08:00 Exam: General: Patient is alert, oriented 3. Respiratory: clear to auscultation Cardiovascular: Regular rate and regular rhythm, S1 and S2 audible. No murmurs, rubs, or gallops. Tenderness on anterior chest wall GI: Soft, nontender, normal bowel sounds. Extremities:No joint swelling, pedal edema, or tenderness noted. Neurological: Alert, oriented 3, no focal deficits. Psychiatric: normal affect, normal mood. - Assessment and Plan (1) Cardiopulmonary arrest with successful resuscitation Current Visit: Yes Status: Acute Assessment and Plan: Had V. fib arrest on 10/24 AM (verified on the strips printed from [employer]) requiring 3 shocks, Epi x 3, and 300mg of IV Amiodarone Neurologically intact and maintaining airway after ROSC trop peaked at 0.43 , EKG did not show any ST elevations echocardiogram showed EF of 30-35% unable to start bb due to bradycardia continue amiodarone gtt appreciate cardiology evaluation, for [facility] today (2) Choledocholithiasis Current Visit: Yes Status: Acute Assessment and Plan: s/p marjorie kingsley, POD #2 for ERCP outpatient after pt is fully recovered (3) Bacteremia due to Escherichia coli Current Visit: Yes Status: Acute Assessment and Plan: ?hepatobiliary source, urinalysis is unremarkable on IV Rocephin repeat blood cultures 10/22 NGTD (4) Essential hypertension Current Visit: Yes Status: Chronic Assessment and Plan: hold off on meds (5) GERD (gastroesophageal reflux disease) Current Visit: No Status: Chronic Assessment and Plan: PPI (6) DVT prophylaxis Current Visit: Yes Status: Acute Assessment and Plan: SQ heparin - Time Spent with Patient Total time spent is greater than 50% in coordination of care (as documented) at patient's floor/unit and/or counseling patient: 25 - 35 minutes Plan of Care Discussed with: patient Internal Medicine: Result - Labs CBC & Chem 7: 10/25/18 04:30 10/25/18 04:30 Labs: Short CBC 10/25/18 Range/Units 04:30 WBC 11.0 (4.3-11.1) K/mcL Hgb 10.9 L (12.9-16.9) g/dL Hct 35.2 L (37.5-50.1) % Plt Count 190 (140-400) K/mcL Neutrophils # 9.0 H (1.6-8.9) K/mcL BMP 10/25/18 04:30 Sodium 138 Potassium 3.7 Chloride 110 H Carbon Dioxide 21 L BUN 23 Creatinine 1.31 H Glucose 122 H Calcium 8.4 L Cardiac Enzymes 10/24/18 10/24/18 10/24/18 Range/Units 10:13 15:55 21:48 Troponin I 0.30 H* 0.47 H* 0.43 H* (< 0.04) ng/mL 10/25/18 Range/Units 04:30 Troponin I 0.38 H* (< 0.04) ng/mL Liver Function 10/25/18 Range/Units 04:30 Total Bilirubin 0.3 (0.3-1.0) mg/dL AST 65 H (13-39) Units/L ALT 114 H (7-52) Units/L Alkaline Phosphatase 123 H (34-104) Units/L Albumin 3.1 L (3.5-5.7) g/dL - ABG Interpretation ABG results: ABG ABG pH 7.32 pH Units (7.32-7.45) 10/24/18 05:58 ABG pCO2 34 mmHg (35-45) L 10/24/18 05:58 ABG pO2 64 mmHg (85-104) L 10/24/18 05:58 ABG O2 Saturation 91 % (95-98) L 10/24/18 05:58 PT/INR, D-dimer PT 11.9 Seconds (9.4-12.1) 10/21/18 11:53 - Impressions Impressions Echocardiogram 10/24/18 04:40 Impressions: LVEF 30-35%. Normal LV chamber size. Mild left ventricular diastolic dysfunction. There is no LV thrombus. Normal right ventricular structure and function. Mild aortic regurgitation. Mild mitral regurgitation. Unable to estimate RVSP due to lack of TR jet. Left Ventricular Wall Motion: Rest Echo Findings The apex, apical inferior, mid inferior, basal inferior, apical anterior, mid anterior, basal anterior, apical septal, mid inferior septal, basal inferior septal, apical lateral, mid anterior lateral, basal anterior lateral, mid anterior septal, mid inferior lateral, basal anterior septal and basal inferior lateral white were hypokinetic. Findings: Study Quality * Technically sub-optimal due to poor echocardiographic windows. ECG Findings * Normal sinus rhythm. Left Ventricle * LVEF 30-35%. Global LV systolic dysfunction. * Normal LV chamber size. * Mild left ventricular diastolic dysfunction. * There is no LV thrombus. Right Ventricle * Normal right ventricular structure and function. Left Atrium * Normal left atrial size. Right Atrium * Normal right atrial size. Interatrial Septum * Interatrial septum not well evaluated. Aortic Valve * Mildly sclerotic aortic valve leaflets. * Mild aortic regurgitation. * No aortic stenosis. Mitral Valve * Mildly thickened mitral valve leaflets. * Mild mitral regurgitation. * No mitral stenosis. Tricuspid Valve * Normal tricuspid valve structure and function. * No tricuspid regurgitation. * Unable to estimate RVSP due to lack of TR jet. Pulmonic Valve * Pulmonic valve not well visualized. Aorta * Normally sized aortic root. Pericardium * The pericardium appears normal. IVC * The IVC is not well evaluated. Pulmonary Artery * Pulmonary artery not well visualized. Consult Discharge Plan - Plan Referrals: Enrique Sosa DO [Primary Care Provider] - (5) GERD (gastroesophageal reflux disease) Qualifiers: Esophagitis presence: esophagitis presence not specified Qualified Code(s): K21.9 - Gastro-esophageal reflux disease without esophagitis
[2018-10-25] MEDS ORDERED: Verapamil 5 MG/2 ML VIAL ONE (10:50)
[2018-10-25] MEDS ORDERED: 0.9 % Sodium Chloride 2,000 ML ONE (10:51)
[2018-10-25] MEDS ORDERED: Nitroglycerin 1,000 MCG/10 ML VIAL IV ONE (10:51)
[2018-10-25] MEDS ORDERED: Heparin 1,000 UNITS/500 mL 500 ML ONE (10:51)
[2018-10-25] MEDS ORDERED: ISOVUE-370 200 ML INFUS..BTL ONE (10:51)
[2018-10-25] MEDS ORDERED: *HR* Heparin 10,000 UNIT/10 ML VIAL ONE (10:51)
[2018-10-25] MEDS ORDERED: *HR* Midazolam HCl 2 MG/2 ML VIAL ONE (10:59)
--- NOTE | 2018-10-25 11:24 | AcuteCareSurgery Progress Note ---
Date of Encounter: 10/25/18 Time of Encounter: 07:30 - Assessment and Plan (1) Symptomatic cholelithiasis Current Visit: Yes Status: Acute POD#2 lap teeete with IOC. IOC was + for probable small distal CBD stones without obstruction. ERCP can be obtained outpt when pt is fully recovered. OK to transfer out of ICU per surgery standpoint. (2) Essential hypertension Current Visit: Yes Status: Chronic (3) Cardiopulmonary arrest with successful resuscitation Current Visit: Yes Status: Acute Pt is stable. Heart cath today. Continue current ICU care. Subjective Patient reports: feels better Narrative: Denies abdominal pain. Reports sternal CP, presumed from CPR. Pt for heart cath today. Objective Vital Signs - Last 8 Hours Temp Pulse Resp BP Pulse Ox 10/25/18 08:00 52 16 132/60 93 10/25/18 07:10 97.7 F 10/25/18 06:01 44 20 136/62 94 10/25/18 05:00 45 20 95 10/25/18 04:01 60 19 128/95 95 Intake and Output 10/24/18 10/25/18 10/25/18 23:59 07:59 15:59 Intake Total 1200 / 1420 1220 / 2272 1052 / 2272 Output Total 100 / 660 300 / 300 Balance 1100 / 760 / 1971 Intake: IV Fluids 1200 / 1420 1220 / 2272 1052 / 2272 0.9 % Sodium Chloride 1,000 ML 1000 / 1000 1000 / 2000 1000 / 2000 @ 100 mls/hr IVC .Q10H HERMILO Rx#: [id number] Amiodarone Drip Premix 360mg/ 200 / 200 200 / 252 52 / 252 200mL 360 mg In 200 ml @ 0.5 MG /MIN 16.667 mls/hr IVC CONT HERMILO Rx#:[id number] Rocephin 2,000 MG In Water for 20 / 20 inj. (sterile) 20 ML @ 600 mls/ hr IVP Q24H HERMILO Rx#:[id number] Oral 0 / 0 0 / 0 Output: Urine 100 / 100 300 / 300 Other: Weight 64 kg Blood Glucose* 139 - General physical appearance no distress, moderate pain (as descibed in HPI) - Eyes PERRL, normal ocular movement - ENT normal mucosa, no congestion - Neck Neck exam: trachea midline, no venous distension - Respiratory normal respiratory effort, clear to auscultation - Cardiovascular Cardiovascular exam: Present: RRR. Absent: JVD - Abdomen Abdomen: Present: soft, tender (appropriate s/p lap teetee) Abdominal Tenderness: RUQ - Neurologic CN 2-12 grossly intact - Musculoskeletal normal posture - Psychiatric oriented to time, oriented to person, oriented to place - Labs 10/25/18 04:30 10/25/18 04:30 Diabetes panel 10/25/18 Range/Units 04:30 Sodium 138 (136-145) mEq/L Potassium 3.7 (3.5-5.1) mEq/L Chloride 110 H (98-107) mEq/L Carbon Dioxide 21 L (23-29) mEq/L BUN 23 (8-23) mg/dL Creatinine 1.31 H (0.70-1.30) mg/dL Glucose 122 H (70-105) mg/dL Calcium 8.4 L (8.6-10.3) mg/dL AST 65 H (13-39) Units/L ALT 114 H (7-52) Units/L Alkaline Phosphatase 123 H (34-104) Units/L Albumin 3.1 L (3.5-5.7) g/dL Calcium panel 10/25/18 Range/Units 04:30 Calcium 8.4 L (8.6-10.3) mg/dL Albumin 3.1 L (3.5-5.7) g/dL Pituitary panel 10/25/18 Range/Units 04:30 Sodium 138 (136-145) mEq/L Potassium 3.7 (3.5-5.1) mEq/L Chloride 110 H (98-107) mEq/L Carbon Dioxide 21 L (23-29) mEq/L BUN 23 (8-23) mg/dL Creatinine 1.31 H (0.70-1.30) mg/dL Glucose 122 H (70-105) mg/dL Calcium 8.4 L (8.6-10.3) mg/dL Adrenal panel 10/25/18 Range/Units 04:30 Sodium 138 (136-145) mEq/L Potassium 3.7 (3.5-5.1) mEq/L Chloride 110 H (98-107) mEq/L Carbon Dioxide 21 L (23-29) mEq/L BUN 23 (8-23) mg/dL Creatinine 1.31 H (0.70-1.30) mg/dL Glucose 122 H (70-105) mg/dL Calcium 8.4 L (8.6-10.3) mg/dL Total Bilirubin 0.3 (0.3-1.0) mg/dL AST 65 H (13-39) Units/L ALT 114 H (7-52) Units/L Alkaline Phosphatase 123 H (34-104) Units/L Albumin 3.1 L (3.5-5.7) g/dL Consult Discharge Plan - Plan Referrals: Colopy,Enrique Acosta DO [Primary Care Provider] -
[2018-10-25] MEDS ORDERED: *HR* Ticagrelor 90 MG TABLET ONE (11:57)
--- NOTE | 2018-10-25 12:09 | Event Note ---
Date of Encounter: 10/25/18 Time of Encounter: 12:08 - Cardiology Event Note Cath Completed. LVEF 45% with inferior akinesis RCA 100% with left to right collaterals LCA prox lad 80% STELLA to 0 % Right radial appraoch DAPT therapy bblockers and risk factor modification.
--- NOTE | 2018-10-25 14:56 | Invasive Diagnostic Lab Proc ---
Name: Reji Clayton Date of Study: 10/25/2018 Date: 1930 Ht: 68.0in Medical Record#: [id number] Age: 87 Wt: 141.32lb Gender: Male BSA: 1.76 Order #: [id number] BMI: 21.49 Physicians Procedure Physician: Eric Burks MD Referring MD: Referring MD: Staff Name Position Time In Ashvin Kaufman RN Monitor 11:13 AM Paige Workman RN Underwriting Analyst 11:13 AM Hannah Mitchell RT (R) Scrub 11:13 AM Sally Treviño RT (R) Scrub 11:13 AM Indications Indication Non-Stemi Procedures Performed Procedure L HRT ARTERY/VENTRICLE ANGIO Pre-Procedure Checklist Informed consent is complete signed and on chart. H&P is on chart. ID band is on and ID verified with patient. Patient NPO for procedure The procedure was described for the patient and questions were answered. Blood Pressure: 132/60 ECG is on chart. Plan of Care Patient will tolerate the procedure without complications. Adequate level of comfort will be maintained. Hemodynamics will remain stable Patient will recover from procedure without complications. Respiratory function will be maintained. Cardiac rhythm will remain stable. Patient temperature will be maintained. Patient and/or family have verbalized understanding of the procedure. Patient Education Intravenous Access Time IV Size Location DC'd Fluid/Drip Rate Units RN 20g 1 1/4" Patent On Arrival Lt Wrist 20g 1 1/4" Patent On Arrival Lt. Shoulder Allergies NKDA aspirin Vital Signs Time BP (mmHg) HR (bpm) O2 Sat. RR (bpm) LOC 132 / 60 52 93 % 16 5 11:14 AM / % 4 = Oriented but drowsy 11:14 AM / % 4 = Oriented but drowsy 11:29 AM / % 5 = Fully awake and oriented or at pre-proc level 11:44 AM / % 5 = Fully awake and oriented or at pre-proc level 11:18 AM 108 / 70 64 97 % 9 11:24 AM 148 / 77 67 97 % 26 11:29 AM 131 / 64 66 97 % 26 11:33 AM 133 / 66 63 94 % 21 11:38 AM 146 / 68 61 95 % 23 11:43 AM 129 / 67 65 95 % 24 11:48 AM 145 / 71 60 94 % 20 11:53 AM 137 / 69 63 93 % 18 11:58 AM 114 / 61 71 97 % 19 Procedural Medications Time Medication Dose Units Method Given By 11:14 AM Oxygen 2 L/min nasal cannula Paige Workman RN 11:18 AM Versed 2 mg Intravenous Paige Workman RN 11:27 AM Lidocaine 2% 1 ml Subcutaneous Eric Burks MD 11:27 AM Heparin 4000 units Nitroglycerin 200 mcg Verapamil 2.5 mg Intraarterial Eric Burks MD 12:01 PM Brilinta 180 mg Orally Paige Workman RN ASA Classification: CLASS II- Mild systemic disease (i.e. well-controlled diabetes, hypertension, asthma, cigarette smoking) Anna Score Preprocedure Postprocedure Activity 2- Moves 4 extremities sustained head lift Activity 2- Moves 4 extremities sustained head lift Circulation 2- SBP +/= 20 points of pre-anesthetic level Circulation 2- SBP +/= 20 points of pre-anesthetic level Consciousness 2- Awake and alert oriented x 3 Consciousness 2- Awake and alert oriented x 3 O2 Saturation 2- Able to maintain O2 satruation of 92% on room air O2 Saturation 2- Able to maintain O2 satruation of 92% on room air Respiratory 2- Able to deep breathe and cough well Respiratory 2- Able to deep breathe and cough well Total Score 10 Total Score 10 Contrast Agent: Isovue Diagnostic Contrast: 100 ml Total Contrast: 100 ml Fluoro Dose: 23 mGy Activated Clotting Time Time Seconds to Clot 11:43 AM 322 Procedure Log Time Note Enter By 11:12 AM Pt arrived to prosthetics lab technician 2 at 11:12 [email or web address] 11:13 AM Ashvin Kaufman RN Position: Monitor Time in: 11:13 [email or web address] 11:13 AM Paige Workman RN Position: Underwriting Analyst Time in: 11:13 [email or web address] 11:13 AM Hannah Mitchell RT (R) Position: Scrub Time in: 11:13 oparveena 11:13 AM Sally Treviño RT (R) Position: Scrub Time in: 11:13 oparveena 11:13 AM Patient charges- Angio tray pack, Navilyst 3mm J, Pulse Oximetry and ACIST tubing and transducer oparker 11:13 AM Physician arrived 11:13 oparveena 11:13 AM Jesse completed oparker 11:13 AM CathStat 11:14 AM Time: 11:14 Patient comfortable and pain free: Yes oparker 11:14 AM Time: 11:14LOC: 4 = Oriented but drowsy oparker 11:14 AM Procedure start 11:14 oparker 11:15 AM Time: 11:14 Oxygen on at 2 L/min per nasal cannula by Paige Workman RN oparker 11:15 AM Vitals capture stopped. 11:17 AM Vitals capture started with the following parameters, Patient=Adult, Interval=5 min, Initial Cuzmdcpa=284 mmHg, Deflation Rate=3 mmHg, Cuff placed on Right Arm 11:18 AM HR=64 bpm, JFCA=224/70 mmhg, SpO2=97.0 %, Resp=9 B/min, Comment=Heart block 11: AM Time: :18 Versed 2 mg Intravenous Given by Paige Workman RN oparker 11:19 AM Hair removed from procedure site in holding area using clippers. Right wrist and Right groin prepped with Chloraprep by Paige Workman RN, then patient was draped. Skin intact. oparker 11:23 AM Recorded ECG: HR=65 Condition=Condition 1 11:24 AM HR=67 bpm, TVJP=392/77 mmhg, SpO2=97.0 %, Resp=26 B/min, Comment=Heart block 11: AM Time out was performed according to hospital policy. Conscious sedation and anesthesia was achieved (see medication log with in this report above) oparker 11: AM Time: 11:27 1 ml Lidocaine 2% to right radial Subcutaneous Given by Eric Burks MD oparker 11: AM Time: :27 Patient given 4,000 units Heparin, 200 mcg Nitroglycerin, and 2.5 mg Verapamil Intraarterial by Eric Burks MD. This is given to reduce risk of vessel spasm and thrombosis. oparker 11:28 AM Pressure channel 2 zeroed. 11:29 AM HR=66 bpm, UGXI=759/64 mmhg, SpO2=97.0 %, Resp=26 B/min, Comment=Heart block 11:29 AM Time: 11:14 Patient comfortable and pain free: Yes oparker 11:29 AM Time: 11:14LOC: 4 = Oriented but drowsy oparker 11:30 AM 0.035 260cm Navilyst 3mmJ wire [id number] oparker 11:30 AM 5Fr FL 3.5 catheter inserted over the wire [id number] oparker 11:30 AM LCA angiography performed in multiple views. oparker 11:30 AM Recorded Pressure: Ao, HR=67, Condition=Condition 1 (Aorta) Ao 129/65/90 11:33 AM HR=63 bpm, DBWK=067/66 mmhg, SpO2=94.0 %, Resp=21 B/min, Comment=Heart block 11:33 AM Catheter removed oparker 11:35 AM Recorded Pressure: Ao, HR=64, Condition=Condition 1 (Aorta) Ao 144/65/98 11:35 AM 5Fr FR 4 catheter inserted over the wire DNC oparker 11:35 AM RCA angiography performed in multiple views. oparker 11:36 AM Catheter removed oparker 11:36 AM 5Fr Pigtail catheter inserted over the wire DNC oparker 11:37 AM Recorded Pressure: LV, HR=70, Condition=Condition 1 (Left Ventricle) LV 137/18/22 11:37 AM Recorded Pressure: LV, HR=65, Condition=Condition 1 (Left Ventricle) LV 149/21/26 11:37 AM Recorded Pressure: LV, Ao, HR=47, Condition=Condition 1 (Left Ventricle) LV 159/9/23, (Aorta) Ao 147/65/102 11:38 AM Catheter crossed the aortic valve and was selectively placed in the left ventricle. Pressures recorded on pullback for left heart catheterization. oparker 11:38 AM Bolus angiogram of left Ventricle complete: 12 ml/sec for a total of 36 mls oparker 11:38 AM Recorded Pressure: Ao, HR=61, Condition=Condition 1 (Aorta) Ao 162/76/110 11:38 AM HR=61 bpm, ZEDG=022/68 mmhg, SpO2=95.0 %, Resp=23 B/min, Comment=Heart block 11:38 AM Inflation device was opened. oparker 11:39 AM Catheter removed oparker 11:39 AM Wire removed oparker 11:39 AM 6Fr JL4 Runway guide catheter was used to cannulate the PCI vessel successfully. reused? No oparker 11:40 AM .014 [employer] [place] 300cm guide wire across target lesion- successful. reused? No oparker 11:41 AM Lesion found in Proximal LAD. Pre Stenosis: 80 Pre CHAD Flow: 3: Complete and Brisk Flow/Perfusion oparker 11:43 AM HR=65 bpm, ZZCH=361/67 mmhg, SpO2=95.0 %, Resp=24 B/min, Comment=Heart block 11:43 AM At 11:43 the ACT was 322 seconds. oparker 11:43 AM Recorded Pressure: Ao, HR=70, Condition=Condition 1 (Aorta) Ao 137/65/94 11:44 AM Time: 11:29 Patient comfortable and pain free: Yes oparker 11:44 AM Time: 11:29LOC: 5 = Fully awake and oriented or at pre-proc level oparker 11:48 AM HR=60 bpm, JMAE=095/71 mmhg, SpO2=94.0 %, Resp=20 B/min 11:48 AM Recorded Pressure: Ao, HR=65, Condition=Condition 1 (Aorta) Ao 153/68/99 11:49 AM .014 [employer] [place] 300cm guide wire across target lesion- successful. reused? No oparker 11:51 AM 3.0mm x 8mm Cordis EluNIR drug-eluting stent across target lesion- successful Lot #[id number] oparker 11:53 AM HR=63 bpm, YVDA=495/69 mmhg, SpO2=93.0 %, Resp=18 B/min, Comment=Heart block 11:55 AM Stent balloon reinflated @ 12 daly for 30 seconds oparker 11:55 AM Recorded Pressure: Ao, HR=66, Condition=Condition 1 (Aorta) Ao 143/73/102 11:57 AM Procedure completed at 11:57 10/25/2018 oparker 11:58 AM Sign out completed: Radiation Dose 292.32 mGy, 22.9 Gy/cm2 Fluoro Time: 11.1 Isovue 370 - 200ml contrast 100 ml given by Eric Burks MD. Complications: None. The patient was discharged out of the [facility] in stable condition. Sedation minutes 39. Cardiac Rehab Consult needed: Yes. Confirmed administered medications: Yes oparker 11:58 AM Isovue 370 - 200ml,1 Bottle(s) used. oparker 11:58 AM Arterial sheath pulled, Vasc Band closure device used and was Successful S/N. oparker 11:58 AM HR=71 bpm, BQTP=032/61 mmhg, SpO2=97.0 %, Resp=19 B/min 11:58 AM Estimated Blood Loss: less than 20cc oparker 11:59 AM Post ECG NSR oparker 11:59 AM Post Blood Pressure 114/61 oparker 11:59 AM 11:59 Post Pulses Bilateral DP 1+ oparker 11:59 AM Information taught Cardiac Cath, PCI, and Vasc Band oparker 11:59 AM 11 ml air in Vasc Band. oparker 11:59 AM Time: 11:44LOC: 5 = Fully awake and oriented or at pre-proc level oparker 11:59 AM Education needs Procedure, Plan of Care, and Disease Process oparker 11:59 AM Learning barriers :None oparker 11:59 AM Education Methods Verbal oparker 11:59 AM Education evaluation Able to repeat information oparker 11:59 AM Site status No bleeding/ No Hematoma - Rt Wrist as reported by Hannah Mitchell RT (R) at 11:59 oparker 12:00 PM Did you address CHAD flow and Dominance? YesCoronary Dominance: right oparker 12:01 PM Time: 12:01 Brilinta 180 mg Orally Given by Paige Workman RN oparker 12:02 PM Lesion found in Mid RCA. Pre Stenosis: 100 Pre CHAD Flow: oparker 12:02 PM Lesion found in Proximal Circumflex. Pre Stenosis: 25 Pre CHAD Flow: oparker 12:02 PM Lesion found in Distal Circumflex. Pre Stenosis: 25 Pre CHAD Flow: oparker 12:02 PM Proximal Left Anterior Descending Coronary Artery with 80% stenosis. If graft is supplying this territory, 0 % stenosis. oparker 12:02 PM Circumflex, Obtuse Marginal, Left Posterior Descending, and Left Posterolateral Coronary Arteries with 25 % stenosis. If graft is supplying this area, 0 % stenosis oparker 12:02 PM Right Coronary, Right Posterior Descending Arteries with Right Posterolateral and Acute Marginal branches with 100 % stenosis. If graft is supplying this area, 0 % stenosis oparker 12:07 PM Lesion found in Mid Circumflex. Pre Stenosis: 25 Pre CHAD Flow: oparker 12:08 PM ASA Class CLASS II- Mild systemic disease (i.e. well-controlled diabetes, hypertension, asthma, cigarette smoking) oparker Complications Complication None Hemodynamics Pressures Site Systolic/A Wave Diastolic/V Wave Mean AO 129 65 90 AO 144 65 98 LV 137 18 22 LV 149 21 26 LV 159 9 23 AO 147 65 102 AO 162 76 110 AO 137 65 94 AO 153 68 99 AO 143 73 102 Post Procedure Information Blood Pressure: 114/61 mmHg Rhythm: NSR Post procedural instructions were given Closure Device Time Device Success/Fail 10/25/2018 12:03:00 PM Mechanical Compression Successful Site Checks Time Location Status Staff Sheath In? Note 11:59 AM Rt Wrist No bleeding/ No Hematoma Hannah Mitchell RT (R) Pulses Time Site Pre-Procedure Post-Procedure Note Bilateral DP & PT 1+ Bilateral radial 2+ 11:59:00 AM Bilateral DP 1+ Updated by Ashvin Kaufman RN on 10/25/2018 2:50:55 PM electronically signed on 10/25/2018 2:51:18 PM with status of Final
[2018-10-25] MEDS: *HR* HYDROcodone/Acet 5/325 mg TABLET PO PRN ×2 (17:49→23:55)
[2018-10-25] MEDS: *HR* Ticagrelor 90 MG TABLET PO SCH (21:02)
[2018-10-26] MEDS: *HR* Heparin 5,000 UNIT/ML VIAL SQ SCH ×2 (03:42→17:05)
[2018-10-26] MEDS: *HR* OxyCODONE Immed Rel 5 MG TABLET PO PRN ×2 (03:42→13:40)
[2018-10-26 05:37] LABS: Basophils % 0.3 %; Eosinophils % 0.1 %; Hematocrit 35.5 % (37.5-50.1); Hemoglobin 11.5 g/dL (12.9-16.9); Immature Granulocytes % 0.5 % (0-4); Lymphocytes # 0.8 K/mcL (0.6-4.6); Lymphocytes % 5.8 %; Mean Corpuscular HGB Conc 32.4 g/dL (31.6-35.5); Mean Corpuscular Hemoglobin 30.6 pg (28.0-33.3); Mean Corpuscular Volume 94.4 fL (83.0-100.0); Mean Platelet Volume 11.4 fL (9.4-12.4); Monocytes # 1.1 K/mcL (0.0-1.3); Monocytes % 8.5 %; Neutrophils # 11.3 K/mcL (1.6-8.9); Platelet Count 202 K/mcL (140-400); Red Blood Count 3.76 M/mcL (4.19-5.50); Red Cell Distribution Width 12.8 % (11.5-14.5); Segmented Neutrophils % 84.8 %; White Blood Count 13.4 K/mcL (4.3-11.1)
[2018-10-26 05:52] LABS: BUN/Creatinine Ratio 20 (6-26); Blood Urea Nitrogen 21 mg/dL (8-23); Calcium 8.9 mg/dL (8.6-10.3); Carbon Dioxide 21 mEq/L (23-29); Chloride 105 mEq/L (98-107); Glucose 172 mg/dL (70-105); Magnesium 1.9 mg/dL (1.6-2.6); Osmolality,Calculated 303 (280-300); Potassium 3.4 mEq/L (3.5-5.1); Sodium 143 mEq/L (136-145); eGFR For African Americans > 60 (> 60); eGFR For Non-African Americans > 60 (> 60)
[2018-10-26] MEDS: *HR* Ticagrelor 90 MG TABLET PO SCH ×2 (08:15→21:35)
[2018-10-26] MEDS: Aspirin 81 MG TAB.CHEW PO SCH (08:15)
[2018-10-26] MEDS: cefTRIAXone 2,000 MG in Water for inj. (sterile) 20 ML IVP SCH (08:17)
[2018-10-26] MEDS: *HR* HYDROcodone/Acet 5/325 mg TABLET PO PRN ×2 (08:23→21:35)
[2018-10-26] MEDS: Insulin LISPRO 300 UNITS/3 ML VIAL SQ SCH ×4 (08:25→21:34)
[2018-10-26] MEDS ORDERED: Metoprolol XL (24 HR) Succ 50 MG TAB.ER.24H PO SCH (09:00)
--- NOTE | 2018-10-26 13:03 | Internal Med Progress Note ---
Hospitalist Progress Note - Encounter Date of Encounter: 10/26/18 Time of Encounter: 10:30 - Subjective Interval History: Underwent LHC with STELLA to pLAD yesterday uneventfully. Denies any chest pain, shortness of breath, lightheadedness, or nausea/vomiting. He has not tried ambulating since the admission. - Exam Vitals: Temp Pulse Resp BP Pulse Ox 97.1 F L 72 17 199/78 96 10/26/18 11:42 10/26/18 11:42 10/26/18 11:42 10/26/18 11:42 10/26/18 11:42 Exam: General: Patient is alert, oriented 3. Respiratory: clear to auscultation Cardiovascular: Regular rate and regular rhythm, S1 and S2 audible. No murmurs, rubs, or gallops. Tenderness on anterior chest wall GI: Soft, nontender, normal bowel sounds. Extremities:No joint swelling, pedal edema, or tenderness noted. R wrist without hematoma Neurological: Alert, oriented 3, no focal deficits. Psychiatric: normal affect, normal mood. - Assessment and Plan (1) Cardiopulmonary arrest with successful resuscitation Current Visit: Yes Status: Acute Assessment and Plan: Had V. fib arrest on 10/24 AM (verified on the strips printed from [employer]) requiring 3 shocks, Epi x 3, and 300mg of IV Amiodarone Neurologically intact and maintaining airway after ROSC trop peaked at 0.43 , EKG did not show any ST elevations echocardiogram showed EF of 30-35% underwent LHC yesterday: 80% pLAD stenosis s/p STELLA. 100% mRCA with collaterals DAPT, statin. Will hold off on bb due to bradycardia unless cardiology adds it back on. Appreciate input will restart losartan (2) CAD (coronary artery disease) Current Visit: Yes Status: Chronic Assessment and Plan: s/p LHC with PCI to pLAD, see above (3) Choledocholithiasis Current Visit: Yes Status: Acute Assessment and Plan: s/p lap teetee, POD #3 for ERCP outpatient after pt is fully recovered (4) Bacteremia due to Escherichia coli Current Visit: Yes Status: Acute Assessment and Plan: ?hepatobiliary source, urinalysis is unremarkable repeat blood cultures 10/22 NGTD on IV Rocephin, treat through 11/05 (5) Diabetes Current Visit: Yes Status: Chronic Assessment and Plan: newly diagnosed, A1c 6.8 on low dose sliding scale metformin on discharge (6) Essential hypertension Current Visit: Yes Status: Chronic Assessment and Plan: losartan resumed PRN hydralazine (7) GERD (gastroesophageal reflux disease) Current Visit: No Status: Chronic Assessment and Plan: PPI (8) Physical deconditioning Current Visit: Yes Status: Acute Assessment and Plan: due to prolonged hospital stay and critical illness PT/OT recommending SNF placement, will work with SW (9) DVT prophylaxis Current Visit: Yes Status: Acute Assessment and Plan: SQ heparin - Time Spent with Patient Total time spent is greater than 50% in coordination of care (as documented) at patient's floor/unit and/or counseling patient: Greater than 35 minutes Plan of Care Discussed with: patient Internal Medicine: Result - Labs CBC & Chem 7: 10/26/18 04:42 10/26/18 04:42 Labs: Short CBC 10/26/18 Range/Units 04:42 WBC 13.4 H (4.3-11.1) K/mcL Hgb 11.5 L (12.9-16.9) g/dL Hct 35.5 L (37.5-50.1) % Plt Count 202 (140-400) K/mcL Neutrophils # 11.3 H (1.6-8.9) K/mcL BMP 10/26/18 04:42 Sodium 143 Potassium 3.4 L Chloride 105 Carbon Dioxide 21 L BUN 21 Creatinine 1.06 Glucose 172 H Calcium 8.9 - ABG Interpretation ABG results: ABG ABG pH 7.32 pH Units (7.32-7.45) 10/24/18 05:58 ABG pCO2 34 mmHg (35-45) L 10/24/18 05:58 ABG pO2 64 mmHg (85-104) L 10/24/18 05:58 ABG O2 Saturation 91 % (95-98) L 10/24/18 05:58 PT/INR, D-dimer PT 11.9 Seconds (9.4-12.1) 10/21/18 11:53 Consult Discharge Plan - Plan Instructions: Laparoscopic Cholecystectomy (DC) Additional Instructions: General Surgical Discharge Instructions 1. No pushing, pulling, or lifting greater than 15 lbs for 4 weeks. 2. You may remove your dressings and shower beginning today, but no tub baths, soaking, or swimming for 2 weeks. 3. No driving for two weeks unless otherwise specified and then you may resume driving when you are off narcotics and are safe to react in a car. 4. Pain control at discharge as discussed. 5. Take stool softeners (Colace) or a water based laxative (Miralax) while taking narcotics. You may hold for loose stools. 6. Report any fevers greater than 100.5F, increase abdominal discomfort, drainage that looks like pus, increased redness or pain at the surgical site, or any vomiting. 7. Report any pain in the calves, shortness of breath, or rapid heartbeat. 8. Follow-up in the office as directed. 9. If you were prescribed antibiotics, do not stop them without talking to your provider. Referrals: Keenan Paige MD [Partnered Physician] - 11/13/18 8:40 am Enrique Sosa DO [Primary Care Provider] - (2) CAD (coronary artery disease) Qualifiers: Coronary Disease-Associated Artery/Lesion type: [place] artery [place] vs. transplanted heart: [place] heart Associated angina: with other forms of angina Qualified Code(s): I25.118 - Atherosclerotic heart disease of [place] coronary artery with other forms of angina pectoris (5) Diabetes Qualifiers: Diabetes mellitus type: type 2 Diabetes mellitus long chain quiller tender insulin use: without long chain quiller tender use Diabetes mellitus complication status: with other specified complication Qualified Code(s): E11.69 - Type 2 diabetes mellitus with other specified complication (7) GERD (gastroesophageal reflux disease) Qualifiers: Esophagitis presence: esophagitis presence not specified Qualified Code(s): K21.9 - Gastro-esophageal reflux disease without esophagitis
--- NOTE | 2018-10-26 13:57 | Cardiology Progress Note ---
<Bayron Wetzel - Last Filed: 10/26/18 13:58> Date of Encounter: 10/26/18 Time of Encounter: 13:56 Assessment and Plan (1) NSTEMI (non-ST elevated myocardial infarction) Current Visit: Yes Status: Acute - Per event note on 10/24, CODE MARIEL was called due to cardiac arrest - Patient was found to be in V. fib, received a total of 3 shocks, 3 doses of epinephrine, and one bolus of amiodarone before achieving ROSC - EKG demonstrated no acute changes compared to previous - Was transferred to ICU for further observation - Underwent LHC on 10/25; demonstrated severe two-vessel CAD, mild segmental LV dysfunction with an EF of 45%; drug-eluting stent was placed in proximal LAD Recommendation is to optimize medical management, including dual antiplatelet therapy Plan: - Continue ASA, Brillinta, and metoprolol; metoprolol decreased to 12.5 mg in the setting of bradycardia - Recommend outpatient cardiology followup in 2-4 weeks post discharge (2) Hypertension Current Visit: Yes Status: Acute - Continue home medication - Metoprolol decreased to 12.5 mg in the setting of bradycardia Qualifiers: Qualified Code(s): I10 - Essential (primary) hypertension (3) DVT prophylaxis Current Visit: Yes Status: Acute - SQ heparin Discussion w patient/family: The assessment and plan as outlined above was discussed with the patient and/or family members who expressed understanding and agreement. All questions were answered. Thank you for involving us in the care of your patient. Please call with any questions. Subjective Interval history: Patient seen and examined at bedside; he reports chest wall tenderness and intermittent shortness of breath, which he has been experiencing since admission. Also reports general feeling of fatigue. Patient underwent LHC yesterday, which demonstrated severe two-vessel disease; a drug-eluting stent was placed in the proximal LAD. We recommend dual antiplatelet therapy with Aspirin and Brilinta. Patient should follow up with cardiology in 2-4 weeks after discharge. Objective Vital Signs, Last 4 Hours Temp Pulse Resp BP Pulse Ox 10/26/18 13:02 60 18 150/74 96 10/26/18 11:42 97.1 F L 72 17 199/78 96 Other: General: Conversant, No Apparent Distress HEENT: Atraumatic, Normocephaly, Mucus Membranes Moist, Other (dark circles present around eyes) Neck: No JVD, Normal carotid pulses Cardiac: Reg Rate and Rhythm, Normal S1 and S2, No Murmur Lungs: Diminished breath sounds b/l; shortened inspiratory phase; No Wheeze, Rales, Rhonchi Neuro: Alert and responsive, No focal deficits noted Abdomen: Soft, Non-Tender Skin: No rashes noted on visualized skin (pale appearing), Other Musculoskeletal: No Chest Wall Tenderness Extremities: No Clubbing, No Cyanosis, No Edema, Normal Pulses Results 10/26/18 04:42 10/26/18 04:42 Lab Results 10/26/18 10/26/18 04:42 04:42 WBC 13.4 H Hgb 11.5 L Hct 35.5 L Plt Count 202 Sodium 143 Potassium 3.4 L Chloride 105 Carbon Dioxide 21 L BUN 21 Creatinine 1.06 Glucose 172 H Calcium 8.9 Magnesium 1.9 Consult Discharge Plan - Plan Instructions: Laparoscopic Cholecystectomy (DC) Additional Instructions: General Surgical Discharge Instructions 1. No pushing, pulling, or lifting greater than 15 lbs for 4 weeks. 2. You may remove your dressings and shower beginning today, but no tub baths, soaking, or swimming for 2 weeks. 3. No driving for two weeks unless otherwise specified and then you may resume driving when you are off narcotics and are safe to react in a car. 4. Pain control at discharge as discussed. 5. Take stool softeners (Colace) or a water based laxative (Miralax) while taking narcotics. You may hold for loose stools. 6. Report any fevers greater than 100.5F, increase abdominal discomfort, drainage that looks like pus, increased redness or pain at the surgical site, or any vomiting. 7. Report any pain in the calves, shortness of breath, or rapid heartbeat. 8. Follow-up in the office as directed. 9. If you were prescribed antibiotics, do not stop them without talking to your provider. Referrals: Keenan Paige MD [Partnered Physician] - 11/13/18 8:40 am Enrique Sosa DO [Primary Care Provider] - <Ward Phan - Last Filed: 10/26/18 18:39> Date of Encounter: 10/26/18 Assessment and Plan (1) Cardiopulmonary arrest with successful resuscitation Current Visit: Yes Status: Acute Status post V. fib arrest and PCI to proximal LAD doing well asymptomatic no events on monitor Discussion w patient/family: The assessment and plan as outlined above was discussed with the patient and/or family members who expressed understanding and agreement. All questions were answered. Thank you for involving us in the care of your patient. Please call with any questions. Objective Vital Signs, Last 4 Hours Temp Pulse Resp BP Pulse Ox 10/26/18 17:36 16 97 10/26/18 16:36 98.0 F 55 16 165/76 97 Results 10/26/18 04:42 10/26/18 04:42 Lab Results 10/26/18 10/26/18 04:42 04:42 WBC 13.4 H Hgb 11.5 L Hct 35.5 L Plt Count 202 Sodium 143 Potassium 3.4 L Chloride 105 Carbon Dioxide 21 L BUN 21 Creatinine 1.06 Glucose 172 H Calcium 8.9 Magnesium 1.9
[2018-10-26] MEDS: Ipratropium/Albuterol Neb 3 ML IH PRN ×2 (17:36→21:33)
[2018-10-27] MEDS: Ipratropium/Albuterol Neb 3 ML IH PRN (04:27)
[2018-10-27] MEDS: *HR* OxyCODONE Immed Rel 5 MG TABLET PO PRN ×2 (05:44→12:15)
[2018-10-27 06:45] LABS: Basophils % 0.3 %; Eosinophils # 0.1 K/mcL (0.0-0.6); Eosinophils % 0.6 %; Hematocrit 36.4 % (37.5-50.1); Hemoglobin 11.9 g/dL (12.9-16.9); Immature Granulocytes % 0.9 % (0-4); Lymphocytes # 0.8 K/mcL (0.6-4.6); Lymphocytes % 7.2 %; Mean Corpuscular HGB Conc 32.7 g/dL (31.6-35.5); Mean Corpuscular Hemoglobin 30.6 pg (28.0-33.3); Mean Corpuscular Volume 93.6 fL (83.0-100.0); Mean Platelet Volume 11.3 fL (9.4-12.4); Monocytes # 0.8 K/mcL (0.0-1.3); Monocytes % 7.3 %; Neutrophils # 9.6 K/mcL (1.6-8.9); Platelet Count 228 K/mcL (140-400); Red Blood Count 3.89 M/mcL (4.19-5.50); Segmented Neutrophils % 83.7 %; White Blood Count 11.5 K/mcL (4.3-11.1)
[2018-10-27 07:05] LABS: BUN/Creatinine Ratio 18 (6-26); Blood Urea Nitrogen 19 mg/dL (8-23); Calcium 9.5 mg/dL (8.6-10.3); Carbon Dioxide 22 mEq/L (23-29); Glucose 172 mg/dL (70-105); Magnesium 1.8 mg/dL (1.6-2.6); eGFR For African Americans > 60 (> 60); eGFR For Non-African Americans > 60 (> 60)
[2018-10-27 07:56] LABS: Chloride 111 mEq/L (98-107); Potassium 3.1 mEq/L (3.5-5.1)
[2018-10-27 08:02] LABS: Osmolality,Calculated 286 (280-300); Sodium 135 mEq/L (136-145)
[2018-10-27] MEDS: *HR* Heparin 5,000 UNIT/ML VIAL SQ SCH (08:39)
[2018-10-27] MEDS: Insulin LISPRO 300 UNITS/3 ML VIAL SQ SCH ×2 (08:40→12:12)
[2018-10-27] MEDS: *HR* HYDROcodone/Acet 5/325 mg TABLET PO PRN (08:41)
[2018-10-27] MEDS: *HR* Ticagrelor 90 MG TABLET PO SCH (08:41)
[2018-10-27] MEDS: Aspirin 81 MG TAB.CHEW PO SCH (08:41)
[2018-10-27] MEDS: cefTRIAXone 2,000 MG in Water for inj. (sterile) 20 ML IVP SCH ×2 (08:41→10:33)
[2018-10-27] MEDS ORDERED: Metoprolol XL (24 HR) Succ 25 MG TAB.ER.24H PO SCH (09:00)
--- NOTE | 2018-10-27 09:53 | Discharge Summary ---
- NOTES TO OUTPATIENT PROVIDER Notes to Outpatient Provider: Follow up cardiology and surgery as outpatient. Will need ERCP as outpatient once pt recovers. Orders not resulted at time of discharge: Pending orders 10/22/18 11:30 Culture,Blood [BC] Routine 10/25/18 12:10 ECG 12 lead ECG [ECG] Stat 10/26/18 06:00 ECG 12 lead ECG [ECG] AM 0600 Date of Encounter: 10/27/18 Time of Encounter: 07:15 - Discharge Diagnosis (1) Cardiopulmonary arrest with successful resuscitation Priority: Primary Status: Acute (2) CAD (coronary artery disease) Priority: Secondary Status: Chronic Qualifiers: Coronary Disease-Associated Artery/Lesion type: [place] artery [place] vs. transplanted heart: [place] heart Associated angina: with other forms of angina Qualified Code(s): I25.118 - Atherosclerotic heart disease of [place] coronary artery with other forms of angina pectoris (3) Choledocholithiasis Priority: Secondary Status: Acute (4) Bacteremia due to Escherichia coli Priority: Secondary Status: Acute (5) Diabetes Priority: Secondary Status: Chronic Qualifiers: Diabetes mellitus type: type 2 Diabetes mellitus residential insulin use: without middle or intermediate school principal use Diabetes mellitus complication status: with other specified complication Qualified Code(s): E11.69 - Type 2 diabetes mellitus with other specified complication (6) Essential hypertension Priority: Secondary Status: Chronic (7) GERD (gastroesophageal reflux disease) Priority: Secondary Status: Chronic Qualifiers: Esophagitis presence: esophagitis presence not specified Qualified Code(s): K21.9 - Gastro-esophageal reflux disease without esophagitis (8) Physical deconditioning Priority: Secondary Status: Acute (9) DVT prophylaxis Priority: Secondary Status: Acute Hospital course: Mr. Clayton is a 87 year old male with history of hypertension and GERD who was initially admitted for symptomatic cholelithiasis and E. coli bacteremia. Underwent lap teetee on 10/23 uneventfully and was receiving IV rocephin. His hospital course was complicated by Vfib arrest on the morning of 10/24 requiring 3 shocks, epi x 3, and 300mg of IV Amiodarone before ROSC. After ROSC, pt was spontaneously breathing while maintaining the airway and neurologically intact. Troponin peaked at 0.43 and was subsequently taken for LHC which showed 80% pLAD stenosis s/p STELLA. Due to significant deconditioning, he will be discharged to [facility] for further rehab and continuation of abx. He will need to see cardiology and Surgery as outpatient. As per surgery, he will need ERCP as outpatient after full recovery. Of note, he had A1c of 6.8 and will be discharged on metformin 850mg BID in addition to DAPT, bb, statin, and ARB. Discharge discussed with: patient, nurse, social work, case management - Time Spent with Patient Total time spent providing and/or coordinating discharge services: 33 mins - Discharge Medications Prescriptions: New Aspirin 81 mg PO DAILY #30 tab.chew Ticagrelor [Brilinta] 90 mg PO BID #60 tablet Losartan [Cozaar] 50 mg PO DAILY #60 tab metFORMIN [Glucophage] 850 mg PO BIDWM #60 tablet Atorvastatin [Lipitor] 80 mg PO HS #60 tablet Metoprolol XL (24 HR) Succ [Toprol Xl] 12.5 mg PO DAILY #30 tab.er.24h Continued Omeprazole [PriLOSEC] 20 mg PO DAILY Acetaminophen with Codeine [Acetaminophen-Cod #4 Tablet] 1 tab PO BID PRN 4 Days #8 tablet PRN Reason: Pain Discontinued Losartan [Cozaar] 25 mg PO DAILY Simvastatin [Zocor] 40 mg PO DAILY Home Medications: Omeprazole [PriLOSEC] 20 mg PO DAILY 10/21/18 [History] Acetaminophen with Codeine [Acetaminophen-Cod #4 Tablet] 1 tab PO BID PRN 4 Days #8 tablet 10/27/18 [Rx] Aspirin 81 mg PO DAILY #30 tab.chew 10/27/18 [Rx] Atorvastatin [Lipitor] 80 mg PO HS #60 tablet 10/27/18 [Rx] Losartan [Cozaar] 50 mg PO DAILY #60 tab 10/27/18 [Rx] Metoprolol XL (24 HR) Succ [Toprol Xl] 12.5 mg PO DAILY #30 tab.er.24h 10/27/18 [Rx] Ticagrelor [Brilinta] 90 mg PO BID #60 tablet 10/27/18 [Rx] metFORMIN [Glucophage] 850 mg PO BIDWM #60 tablet 10/27/18 [Rx] Allergies/Adverse Reactions: Allergy/AdvReac Type Severity Reaction Status Date / Time aspirin AdvReac Cough Verified 10/21/18 11:16 Date of admission: 10/22/18 14:50 Primary care physician: Enrique Acosta Colopy Consults: 10/21/18 15:04 Consult to Gastroenterology [CONS] Stat Consulting Provider: Gastroenterology Urszula Reason for Consult: Cholelithiasis with CBD dilation in context of abd pain Call Completed: Yes 10/23/18 11:43 Consult to Surgery [CONS] Routine Consulting Provider: Surgery Urszula Surgical Reason for Consult: Cholecysitis Call Completed: Yes 10/24/18 04:40 Consult to Cardiology [CONS] Routine Comment: Consulting Provider: Cardiology Urszula Reason for Consult: vfib arrest Call Completed: No 10/25/18 12:10 Consult to Cardiac Rehabilitation-Phase1 [CONS] Routine Comment: Reason for Consult: post op PCI Call Completed: Yes 10/25/18 15:24 Consult to Diabetes Education [CONS] Routine Comment: Reason for Consult: newly diagnosed diabetes. 10/26/18 10:21 Consult to Occupational Therapy [CONS] Routine Comment: Evaluate, develop and implement POC Reason for Consult: post cardiac arrest, deconditioning Does patient have active BEDREST order?: No Is patient medically & hemodynamically stable?: Yes Consult to Physical Therapy [CONS] Routine Comment: Evaluate, develop and implement POC Reason for Consult: post cardiac arrest, deconditioning Does patient have active BEDREST order?: No Is patient medically & hemodynamically stable?: Yes - Constitutional Vitals: Temp Pulse Resp BP Pulse Ox 98.0 F 64 16 168/70 97 10/27/18 07:36 10/27/18 07:36 10/27/18 07:36 10/27/18 07:36 10/27/18 07:36 Exam: General: Patient is alert, oriented 3. Respiratory: clear to auscultation Cardiovascular: Regular rate and regular rhythm, S1 and S2 audible. No murmurs, rubs, or gallops. Tenderness on anterior chest wall GI: Soft, nontender, normal bowel sounds. Extremities:No joint swelling, pedal edema, or tenderness noted. R wrist without hematoma Neurological: Alert, oriented 3, no focal deficits. Psychiatric: normal affect, normal mood. - Patient Status Disposition: Transfer SNF Condition: Fair Overall status at discharge: patient is progressing back to baseline - Discharge Instructions Instructions: Laparoscopic Cholecystectomy (DC), Chronic Hypertension (DC), Diabetes Mellitus Type 2 in Adults (DC) Follow Up With: Keenan Paige MD [Partnered Physician] - 11/13/18 8:40 am Enrique Sosa DO [Primary Care Provider] - Eric Burks MD [Partnered Physician] - Additional Instructions: General Surgical Discharge Instructions 1. No pushing, pulling, or lifting greater than 15 lbs for 4 weeks. 2. You may remove your dressings and shower beginning today, but no tub baths, soaking, or swimming for 2 weeks. 3. No driving for two weeks unless otherwise specified and then you may resume driving when you are off narcotics and are safe to react in a car. 4. Pain control at discharge as discussed. 5. Take stool softeners (Colace) or a water based laxative (Miralax) while taking narcotics. You may hold for loose stools. 6. Report any fevers greater than 100.5F, increase abdominal discomfort, drainage that looks like pus, increased redness or pain at the surgical site, or any vomiting. 7. Report any pain in the calves, shortness of breath, or rapid heartbeat. 8. Follow-up in the office as directed. 9. If you were prescribed antibiotics, do not stop them without talking to your provider. - Diet and Activity Activity: as per physical therapy Diet: diabetic diet
--- NOTE | 2018-10-27 10:00 | Physician Discharge Referral ---
ExtendedCare Referral Info Institutional Level of Care: Skilled - Diagnosis (1) Cardiopulmonary arrest with successful resuscitation Priority: Primary Status: Acute (2) CAD (coronary artery disease) Priority: Secondary Status: Chronic (3) Choledocholithiasis Priority: Secondary Status: Acute (4) Bacteremia due to Escherichia coli Priority: Secondary Status: Acute (5) Diabetes Priority: Secondary Status: Chronic (6) Essential hypertension Priority: Secondary Status: Chronic (7) GERD (gastroesophageal reflux disease) Priority: Secondary Status: Chronic (8) Physical deconditioning Priority: Secondary Status: Acute (9) DVT prophylaxis Priority: Secondary Status: Acute - Transfer Medications Prescriptions: Acetaminophen with Codeine [Acetaminophen-Cod #4 Tablet] 1 tab PO BID PRN 4 Days #8 tablet PRN Reason: Pain Aspirin 81 mg PO DAILY #30 tab.chew Ticagrelor [Brilinta] 90 mg PO BID #60 tablet Losartan [Cozaar] 50 mg PO DAILY #60 tab metFORMIN [Glucophage] 850 mg PO BIDWM #60 tablet Atorvastatin [Lipitor] 80 mg PO HS #60 tablet Metoprolol XL (24 HR) Succ [Toprol Xl] 12.5 mg PO DAILY #30 tab.er.24h Home Medications: Omeprazole [PriLOSEC] 20 mg PO DAILY 10/21/18 [History] Acetaminophen with Codeine [Acetaminophen-Cod #4 Tablet] 1 tab PO BID PRN 4 Days #8 tablet 10/27/18 [Rx] Aspirin 81 mg PO DAILY #30 tab.chew 10/27/18 [Rx] Atorvastatin [Lipitor] 80 mg PO HS #60 tablet 10/27/18 [Rx] Losartan [Cozaar] 50 mg PO DAILY #60 tab 10/27/18 [Rx] Metoprolol XL (24 HR) Succ [Toprol Xl] 12.5 mg PO DAILY #30 tab.er.24h 10/27/18 [Rx] Ticagrelor [Brilinta] 90 mg PO BID #60 tablet 10/27/18 [Rx] metFORMIN [Glucophage] 850 mg PO BIDWM #60 tablet 10/27/18 [Rx] Allergies/Adverse Reactions: Allergy/AdvReac Type Severity Reaction Status Date / Time aspirin AdvReac Cough Verified 10/21/18 11:16 - Respiratory Orders Smoking Cessation: Smoking cessation has been advised. For more information, call the [place] Tobacco Quit Line at 3-696-DNWB-NOW. - Rehabiliation Orders Rehab Orders: Evaluation for Physical Therapy, Evaluation for Occupational Therapy CERTIFICATION: I certify that the transfer of the above named patient to an Extended Care Facility is necessary for the continuing treatment of the diagnosis listed. The above information is true and accurate reflection of patient's current condition. Confidential - Redisclosure prohibited without a patient's written consent.
[2018-10-27 11:29] VITALS: BP 160/63
[2018-10-27] MEDS: Potassium Chloride Elixir 20 MEQ/15 ML UDC PO SCH ×2 (12:11→13:58)
--- NOTE | 2018-10-29 10:31 | Electrocardiograph Report ---
[address] [place], [place] [address] Test Date: 2018-10-25 Pat Name: Reji Clayton Department: [id number] Room: 2A38 Gender: M [employer]arf Lab[employer]: : [id number] Requested By: Eric Burks Order Number: [id number] Reading MD: Vaughn Rodriguez Measurements Intervals Wink Rate: 59 P: 49 UT: 174 QRS: -4 QRSD: 102 T: 51 QT: 479 QTc: 478 Interpretive Statements SINUS BRADYCARDIA WITH FREQUENT VENTRICULAR PREMATURE COMPLEXES in bigimenal pattern ANTEROSEPTAL MYOCARDIAL INFARCTION, PROBABLY RECENT ACUTE DE Electronically Signed On 10-29-2018 10:30:17 EDT by Vaughn Rodriguez
== END 2018-10-27 14:25 | DRG 417 ==
LOC: 3ANU 10:57 → EMEROOARM 10:57 → SUATTDRO 16:42 → 3ANU 17:01 → SUATTDRO 10-22 14:50 → ICNU 10-24 04:49 → 2ANU 10-25 16:44
PROVIDERS: ADMIT Internal Medicine; ATTEND Internal Medicine

== ENCOUNTER 2020-12-17 16:41 | Inpatient (IN) ==
[2020-12-17 19:16] LABS: Basophils # 0.1 K/mcL (0.0-0.2); Basophils % 0.7 %; Eosinophils # 0.2 K/mcL (0.0-0.6); Eosinophils % 1.9 %; Hematocrit 36.8 % (37.5-50.1); Immature Granulocytes % 0.3 % (0-4); Lymphocytes % 10.3 %; Mean Corpuscular HGB Conc 32.6 g/dL (31.6-35.5); Mean Corpuscular Hemoglobin 30.8 pg (28.0-33.3); Mean Corpuscular Volume 94.6 fL (83.0-100.0); Mean Platelet Volume 11.1 fL (9.4-12.4); Monocytes # 0.6 K/mcL (0.0-1.3); Monocytes % 6.2 %; Neutrophils # 7.7 K/mcL (1.6-8.9); Platelet Count 290 K/mcL (140-400); Red Blood Count 3.89 M/mcL (4.19-5.50); Red Cell Distribution Width 13.1 % (11.5-14.5); Segmented Neutrophils % 80.6 %; White Blood Count 9.6 K/mcL (4.3-11.1)
[2020-12-17 19:18] LABS: Bilirubin,Urine Negative (Negative); Blood,Urine Negative (Negative); Clarity,Urine Clear (Clear); Color,Urine Yellow (Yellow); Glucose,Urine (UA) Normal (Normal); Hyaline Casts,Urine Many per lpf (None Seen); Ketones,Urine Negative (Negative); Leukocyte Esterase,Urine Moderate (Negative); Mucus,Urine Few per lpf (None-Few); Nitrite,Urine Negative (Negative); PH,Urine 5.5 pH Units (5.0-8.0); Protein,Urine Trace mg/dL (Neg-Trace); RBC,Urine 0-3 per hpf (0-3); Specific Gravity,Urine 1.024 (1.010-1.025); Squamous Epithelial Cell,Urine Few per hpf (None-Few); Urobilinogen,Urine Normal (Normal)
[2020-12-17 19:26] LABS: Calcium 9.8 mg/dL (8.6-10.3); Potassium 3.6 mEq/L (3.5-5.1)
[2020-12-17 19:34] LABS: Albumin 4.7 g/dL (3.5-5.7); Albumin/Globulin Ratio 1.7 (1.1-2.2); Bilirubin,Direct 0.1 mg/dL (0.0-0.2); Bilirubin,Indirect 0.2 mg/dL (0.0-1.0); Bilirubin,Total 0.3 mg/dL (0.3-1.0); Globulin 2.7 g/dL (2.4-3.5); Magnesium 2.1 mg/dL (1.6-2.6); Total Protein 7.4 g/dL (6.4-8.9); Troponin I 0.05 ng/mL (< 0.04)
[2020-12-17] MEDS ORDERED: 0.9 % Sodium Chloride 1,000 ML IVC ONE ×2 (19:58→21:19)
[2020-12-17] MEDS ORDERED: Ondansetron 4 MG/2 ML VIAL IVP ONE (19:59)
[2020-12-17] MEDS ORDERED: Ondansetron 4 MG/2 ML VIAL IVP PRN (22:03)
[2020-12-17] MEDS ORDERED: Naloxone 0.4 MG/ML INJ IVP PRN (22:03)
[2020-12-17] MEDS ORDERED: 0.9 % Sodium Chloride 1,000 ML IVC SCH (22:15)
[2020-12-18 00:31] LABS: Sodium, Urine 15.6 mEq/L
[2020-12-18] MEDS ORDERED: Pantoprazole 40 MG VIAL IVP ONE (02:15)
[2020-12-18 08:25] LABS: Mean Corpuscular HGB Conc 31.9 g/dL (31.6-35.5); Mean Corpuscular Hemoglobin 30.7 pg (28.0-33.3); Mean Corpuscular Volume 96.4 fL (83.0-100.0); Mean Platelet Volume 10.9 fL (9.4-12.4); Platelet Count 232 K/mcL (140-400); Red Blood Count 3.32 M/mcL (4.19-5.50); Red Cell Distribution Width 12.9 % (11.5-14.5)
[2020-12-18 08:31] LABS: Calcium 8.5 mg/dL (8.6-10.3); Potassium 3.3 mEq/L (3.5-5.1)
[2020-12-18 08:40] LABS: Troponin I 0.05 ng/mL (< 0.04)
[2020-12-18 09:09] LABS: Hemoglobin 10.2 g/dL (12.9-16.9)
[2020-12-18 09:28] LABS: Albumin 3.9 g/dL (3.5-5.7); Albumin/Globulin Ratio 1.9 (1.1-2.2); Bilirubin,Direct 0.1 mg/dL (0.0-0.2); Bilirubin,Indirect 0.3 mg/dL (0.0-1.0); Bilirubin,Total 0.4 mg/dL (0.3-1.0); Globulin 2.1 g/dL (2.4-3.5)
[2020-12-18] MEDS: Ringers Solution, Lactated 1,000 ML IVC SCH (22:37)
[2020-12-18 23:54] LABS: Adenovirus Not Detected (Not Detect); Bordetella Pertussis Not Detected (Not Detect); Chlamydophila pneumoniae Not Detected (Not Detect); Coronavirus 229E Not Detected (Not Detect); Coronavirus HKU1 Not Detected (Not Detect); Coronavirus NL63 Not Detected (Not Detect); Coronavirus OC43 Not Detected (Not Detect); Human Metapneumovirus Not Detected (Not Detect); Human Rhinovirus/Enterovirus Not Detected (Not Detect); Influenza A Subtype 2009 H1 Not Detected (Not Detect); Influenza B Not Detected (Not Detect); Mycoplasma pneumoniae Not Detected (Not Detect); Parainfluenza Virus 1 Not Detected (Not Detect); Parainfluenza Virus 2 Not Detected (Not Detect); Parainfluenza Virus 3 Not Detected (Not Detect); Parainfluenza Virus 4 Not Detected (Not Detect); Respiratory Syncytial Virus Not Detected (Not Detect); SARS-CoV-2 Not Detected (Not Detect)
[2020-12-19] MEDS: Metoprolol XL (24 HR) Succ 25 MG TAB.ER.24H PO SCH (08:25)
[2020-12-19] MEDS: Aspirin 81 MG TAB.CHEW PO SCH (08:25)
[2020-12-19] MEDS ORDERED: Famotidine 20 MG TABLET PO SCH (09:00)
[2020-12-19 10:39] LABS: Basophils # 0.1 K/mcL (0.0-0.2); Basophils % 0.9 %; Eosinophils # 0.4 K/mcL (0.0-0.6); Eosinophils % 3.9 %; Hematocrit 31.5 % (37.5-50.1); Hemoglobin 10.1 g/dL (12.9-16.9); Immature Granulocytes % 0.4 % (0-4); Lymphocytes # 0.9 K/mcL (0.6-4.6); Lymphocytes % 9.3 %; Mean Corpuscular HGB Conc 32.1 g/dL (31.6-35.5); Mean Corpuscular Hemoglobin 30.8 pg (28.0-33.3); Mean Platelet Volume 10.8 fL (9.4-12.4); Monocytes # 0.8 K/mcL (0.0-1.3); Monocytes % 8.1 %; Neutrophils # 7.2 K/mcL (1.6-8.9); Platelet Count 225 K/mcL (140-400); Red Blood Count 3.28 M/mcL (4.19-5.50); Segmented Neutrophils % 77.4 %; White Blood Count 9.3 K/mcL (4.3-11.1)
[2020-12-19] MEDS: Ringers Solution, Lactated 1,000 ML IVC SCH (10:54)
[2020-12-19 11:08] LABS: Albumin 3.9 g/dL (3.5-5.7); Albumin/Globulin Ratio 1.8 (1.1-2.2); Bilirubin,Direct 0.2 mg/dL (0.0-0.2); Bilirubin,Indirect 0.4 mg/dL (0.0-1.0); Bilirubin,Total 0.6 mg/dL (0.3-1.0); Calcium 9.1 mg/dL (8.6-10.3); Globulin 2.2 g/dL (2.4-3.5); Magnesium 1.8 mg/dL (1.6-2.6); Potassium 3.6 mEq/L (3.5-5.1); Total Protein 6.1 g/dL (6.4-8.9)
[2020-12-20] MEDS: Ringers Solution, Lactated 1,000 ML IVC SCH ×2 (00:45→10:24)
[2020-12-20] MEDS: Aspirin 81 MG TAB.CHEW PO SCH (10:23)
[2020-12-20] MEDS: Metoprolol XL (24 HR) Succ 25 MG TAB.ER.24H PO SCH (10:23)
[2020-12-20 10:52] LABS: Basophils # 0.1 K/mcL (0.0-0.2); Basophils % 0.8 %; Eosinophils # 0.5 K/mcL (0.0-0.6); Eosinophils % 6.4 %; Hemoglobin 9.4 g/dL (12.9-16.9); Immature Granulocytes % 0.3 % (0-4); Lymphocytes # 1.2 K/mcL (0.6-4.6); Lymphocytes % 16.8 %; Mean Corpuscular HGB Conc 32.4 g/dL (31.6-35.5); Mean Corpuscular Hemoglobin 30.7 pg (28.0-33.3); Mean Corpuscular Volume 94.8 fL (83.0-100.0); Mean Platelet Volume 11.3 fL (9.4-12.4); Monocytes # 0.7 K/mcL (0.0-1.3); Monocytes % 9.3 %; Neutrophils # 4.8 K/mcL (1.6-8.9); Platelet Count 218 K/mcL (140-400); Red Blood Count 3.06 M/mcL (4.19-5.50); Segmented Neutrophils % 66.4 %; White Blood Count 7.2 K/mcL (4.3-11.1)
[2020-12-20] MEDS: Sennosides/Docusate Sodium TABLET PO SCH ×2 (11:46→21:05)
[2020-12-20] MEDS: polyethylene glycoL 3350 17 GM POWD.PACK PO SCH (11:47)
[2020-12-20 12:40] LABS: Albumin 3.3 g/dL (3.5-5.7); Albumin/Globulin Ratio 1.7 (1.1-2.2); Bilirubin,Direct 0.1 mg/dL (0.0-0.2); Bilirubin,Indirect 0.4 mg/dL (0.0-1.0); Bilirubin,Total 0.5 mg/dL (0.3-1.0); Calcium 8.9 mg/dL (8.6-10.3); Globulin 1.9 g/dL (2.4-3.5); Magnesium 1.7 mg/dL (1.6-2.6); Potassium 3.8 mEq/L (3.5-5.1); Total Protein 5.2 g/dL (6.4-8.9)
[2020-12-20 13:01] LABS: Folate 12.5 ng/mL (3.0-16.0)
[2020-12-21 06:46] LABS: Basophils # 0.1 K/mcL (0.0-0.2); Basophils % 0.8 %; Eosinophils # 0.5 K/mcL (0.0-0.6); Eosinophils % 6.3 %; Hematocrit 27.7 % (37.5-50.1); Hemoglobin 9.3 g/dL (12.9-16.9); Immature Granulocytes % 0.3 % (0-4); Lymphocytes # 1.4 K/mcL (0.6-4.6); Mean Corpuscular HGB Conc 33.6 g/dL (31.6-35.5); Mean Corpuscular Volume 95.2 fL (83.0-100.0); Monocytes # 0.7 K/mcL (0.0-1.3); Monocytes % 8.6 %; Neutrophils # 5.2 K/mcL (1.6-8.9); Platelet Count 211 K/mcL (140-400); Red Blood Count 2.91 M/mcL (4.19-5.50); Red Cell Distribution Width 12.9 % (11.5-14.5); White Blood Count 7.9 K/mcL (4.3-11.1)
[2020-12-21 07:10] LABS: Calcium 8.9 mg/dL (8.6-10.3); Magnesium 1.7 mg/dL (1.6-2.6); Potassium 3.8 mEq/L (3.5-5.1)
[2020-12-21 07:28] LABS: Albumin 3.4 g/dL (3.5-5.7); Albumin/Globulin Ratio 1.8 (1.1-2.2); Bilirubin,Direct 0.1 mg/dL (0.0-0.2); Bilirubin,Indirect 0.5 mg/dL (0.0-1.0); Bilirubin,Total 0.6 mg/dL (0.3-1.0); Globulin 1.9 g/dL (2.4-3.5); Total Protein 5.3 g/dL (6.4-8.9)
[2020-12-21] MEDS: polyethylene glycoL 3350 17 GM POWD.PACK PO SCH (08:33)
[2020-12-21] MEDS: Metoprolol XL (24 HR) Succ 25 MG TAB.ER.24H PO SCH (08:35)
[2020-12-21] MEDS: Sennosides/Docusate Sodium TABLET PO SCH ×2 (08:35→19:42)
[2020-12-21] MEDS: Aspirin 81 MG TAB.CHEW PO SCH (08:35)
[2020-12-21] MEDS: Lactulose Oral Soln 20 GM/30 ML UDC PO SCH (11:44)
[2020-12-22 01:47] LABS: Basophils # 0.1 K/mcL (0.0-0.2); Basophils % 0.7 %; Eosinophils # 0.4 K/mcL (0.0-0.6); Eosinophils % 4.4 %; Hematocrit 28.5 % (37.5-50.1); Hemoglobin 9.2 g/dL (12.9-16.9); Immature Granulocytes % 0.2 % (0-4); Lymphocytes # 1.2 K/mcL (0.6-4.6); Lymphocytes % 14.7 %; Mean Corpuscular HGB Conc 32.3 g/dL (31.6-35.5); Mean Corpuscular Hemoglobin 30.8 pg (28.0-33.3); Mean Corpuscular Volume 95.3 fL (83.0-100.0); Mean Platelet Volume 10.9 fL (9.4-12.4); Monocytes # 0.7 K/mcL (0.0-1.3); Neutrophils # 5.8 K/mcL (1.6-8.9); Platelet Count 220 K/mcL (140-400); Red Blood Count 2.99 M/mcL (4.19-5.50); Red Cell Distribution Width 13.2 % (11.5-14.5); White Blood Count 8.1 K/mcL (4.3-11.1)
[2020-12-22 02:07] LABS: Albumin 3.3 g/dL (3.5-5.7); Albumin/Globulin Ratio 1.6 (1.1-2.2); Bilirubin,Direct 0.2 mg/dL (0.0-0.2); Bilirubin,Indirect 0.4 mg/dL (0.0-1.0); Bilirubin,Total 0.6 mg/dL (0.3-1.0); Globulin 2.1 g/dL (2.4-3.5); Total Protein 5.4 g/dL (6.4-8.9)
[2020-12-22 02:10] LABS: BUN/Creatinine Ratio 13 (6-26); Blood Urea Nitrogen 18 mg/dL (8-23); Calcium 8.9 mg/dL (8.6-10.3); Carbon Dioxide 20 mEq/L (23-29); Chloride 115 mEq/L (98-107); Glucose 114 mg/dL (70-105); Magnesium 1.7 mg/dL (1.6-2.6); Osmolality,Calculated 299 (280-300); Potassium 4.2 mEq/L (3.5-5.1); Sodium 143 mEq/L (136-145); eGFR For African Americans > 60 (> 60); eGFR For Non-African Americans 50 (> 60)
[2020-12-22] MEDS: polyethylene glycoL 3350 17 GM POWD.PACK PO SCH (09:20)
[2020-12-22] MEDS: Lactulose Oral Soln 20 GM/30 ML UDC PO SCH (09:20)
[2020-12-22] MEDS: Aspirin 81 MG TAB.CHEW PO SCH (09:20)
[2020-12-22] MEDS: Metoprolol XL (24 HR) Succ 25 MG TAB.ER.24H PO SCH (09:21)
[2020-12-23 03:27] VITALS: TEMP 98; O2SAT 94
[2020-12-23 07:26] VITALS: BP 124/66; PULSE 50
[2020-12-23] MEDS: Aspirin 81 MG TAB.CHEW PO SCH (07:26)
[2020-12-23] MEDS: polyethylene glycoL 3350 17 GM POWD.PACK PO SCH (07:27)
[2020-12-23] MEDS ORDERED: Furosemide 20 MG TABLET PO SCH (09:00)
== END 2020-12-23 09:04 | disposition home health service (06) | DRG 388 ==
LOC: EMEROOARM 16:41 → CDU 16:41 → SUATTDRO 22:03 → CDU 23:29 → 2ANU 12-19 10:45
PROVIDERS: ADMIT Internal Medicine; ATTEND Pharmacist